=== PATIENT | female | born 1945 | race Caucasian/White ===

== ENCOUNTER → 2016-08-20 | Outpatient (CLI) | payer MEDICARE, OTHER ==
[~2016-08-20] MED LIST: ALDACTONE 100M100 MG PO; ALDACTONE50 MG PO; AMBIEN 10MG10 MG PO; AMBIEN 5MG TABLE5 MG PO; AMOXICILLIN 8751 TAB PO; ASPIRIN 32325 MG/TAB PO; ATIVAN 0.50.5 MG/TAB PO; ATIVAN 1MG T1 MG/TAB PO; BACTRIM DS 8001 TAB PO; CRESTOR 10MG10 MG PO; DOXYCYCLINE 10100 MG PO; EFFIENT10 MG PO; EXFORGE 10/320 PO; LASIX 20MG TABL20 MG PO; LORAZEPAM1 MG PO; PLAVIX 75MG TAB75 MG PO; PREMARIN0.3 MG PO; PRIL40 PO; PRINIVIL20 MG PO; REMERON30 MG PO; TOPROL XL 25MG25 MG PO; TOPROL XL 50MG50 MG PO; ULTRAM 50MG TAB50 MG PO; ZESTRIL 5MG5 MG PO; ZOLOFT 50MG50 MG PO; ZOLOFT50 MG PO; ZOLPIDEM10 MG PO
== END ==
LOC: MC.RAD 13:40
DX: Z12.31 Encounter for screening mammogram for malignant neoplasm of breast (principal)

== ENCOUNTER 2016-11-01 09:03 | Emergency (ER) | payer MEDICARE, OTHER ==
[~2016-11-01] VITALS: Ht 160 cm; Wt 72.7 kg
[~2016-11-01 09:03] MED LIST changes: -LASIX 20MG TABL20 MG PO; -PRINIVIL20 MG PO; -TOPROL XL 50MG50 MG PO
[2016-11-01 09:05] VITALS: TEMP 98.1
[2016-11-01 10:04] LABS: BASO # 0.1 (0.0-0.2); BASO % 0.9 % (0.0-2.0); EOS # 0.1 (0.0-0.7); EOS % 1.1 % (0-4.0); GRAN # 3.6 (1.4-6.5); GRAN % 63.1 % (42.2-75.2); LYMPH # 1.3 (1.2-3.4); LYMPH % 23.1 % (20.0-51.0); MEAN CELL VOLUME 85 fl (80.0-100.0); MEAN CORPUSCULAR HGB CONC 35 g/dl (33.0-37.0); MONO # 0.6 (0.1-0.6); MONO % 10.6 % (1.7-9.3); PLATELET COUNT 220 K/mm3 (130-400); REDCELL DISTRIBUTION WIDTH-CV 11.8 % (11.5-14.5); WHITE BLOOD COUNT 5.7 K/mm3 (4.8-10.8)
[2016-11-01 10:06] LABS: HEMATOCRIT 34.1 % (37.0-47.0); HEMOGLOBIN 11.9 g/dl (12.5-16.0); MEAN CORPUSCULAR HEMOGLOBIN 30 pg (27.0-31.0)
[2016-11-01 10:18] LABS: ADJUSTED CALCIUM 9.2 mg/dL (8.4-10.2); ALBUMIN 4.1 gm/dL (3.5-5.0); BILIRUBIN,TOTAL 0.8 mg/dL (0.0-1.0); CALCIUM 9.3 mg/dL (8.4-10.2); CREATININE, serum 0.96 mg/dL (0.52-1.25); POTASSIUM 4.9 mmol/L (3.4-5.0); TOTAL PROTEIN 7.2 gm/dL (6.4-8.2)
[2016-11-01 10:20] LABS: PH 6 (5-8); SQUAMOUS EPITHELIAL 0-2 /hpf; URINE APPEARANCE Clear; URINE BACTERIA None Seen /hpf; URINE BILIRUBIN Negative (NEGATIVE); URINE BLOOD 1+ (NEGATIVE); URINE COLOR Straw; URINE GLUCOSE Negative (NEGATIVE); URINE KETONE Negative (NEGATIVE); URINE RBC 0-2 /hpf; URINE UROBILINOGEN Negative (NEGATIVE); URINE WBC 0-2 /hpf
[2016-11-01] MEDS ORDERED: AMBIEN 5MG TABLE5 MG PO (10:25)
[2016-11-01] MEDS ORDERED: TOPROL XL 50MG50 MG PO (10:27)
[2016-11-01] MEDS ORDERED: LASIX 20MG TABL20 MG PO (10:29)
[2016-11-01] MEDS ORDERED: PRINIVIL20 MG PO (10:31)
[2016-11-01] MEDS ORDERED: ALDACTONE50 MG PO (10:35)
[2016-11-01 11:45] VITALS: BP 165/91; PULSE 57
== END 2016-11-01 11:45 | disposition home or self-care (01) ==
LOC: COL.ER 09:03
PROVIDERS: Family Medicine
DX: E87.1 Hypo-osmolality and hyponatremia (principal); I25.10 Atherosclerotic heart disease of native coronary artery without angina pectoris; I10 Essential (primary) hypertension
CPT/HCPCS: J7030

== ENCOUNTER → 2018-10-07 | Outpatient (CLI) | payer MEDICARE, OTHER ==
[~2018-10-07] MED LIST changes: +LASIX 20MG TABL20 MG PO; +PRINIVIL20 MG PO; +TOPROL XL 50MG50 MG PO
== END ==
LOC: MC.RAD 13:45
DX: Z12.31 Encounter for screening mammogram for malignant neoplasm of breast (principal); N64.89 Other specified disorders of breast

== ENCOUNTER → 2019-10-17 | Outpatient (CLI) | payer MEDICARE, OTHER | LOC: MC.RAD 10:42 | DX: Z12.31 Encounter for screening mammogram for malignant neoplasm of breast (principal) ==

== ENCOUNTER 2020-08-22 10:47 | Emergency (ER) | payer MEDICARE, OTHER ==
[~2020-08-22] VITALS: Ht 160 cm; Wt 62.7 kg
[2020-08-22 10:55] VITALS: TEMP 96.9
[2020-08-22 11:36] LABS: BASO % 0.4 % (0.0-2.0); EOS % 0.3 % (0-4.0); GRAN # 6.6 (1.4-6.5); GRAN % 73.6 % (42.2-75.2); LYMPH # 1.5 (1.2-3.4); LYMPH % 16.1 % (20.0-51.0); MEAN CELL VOLUME 86 fl (80.0-100.0); MEAN CORPUSCULAR HEMOGLOBIN 30 pg (27.0-31.0); MEAN CORPUSCULAR HGB CONC 35 g/dl (33.0-37.0); MEAN PLATELET VOLUME 10.4 fl (7.4-10.4); MONO # 0.8 (0.1-0.6); MONO % 8.8 % (1.7-9.3); PLATELET COUNT 155 K/mm3 (130-400); RED BLOOD COUNT 4.07 M/mm3 (4.10-5.30); REDCELL DISTRIBUTION WIDTH-CV 12.3 % (11.5-14.5)
[2020-08-22 11:38] LABS: COLLECTION METHOD CLEAN CATCH
[2020-08-22 11:41] LABS: HEMATOCRIT 34.8 % (37.0-47.0)
[2020-08-22 11:43] LABS: PH 6 (5-8); SQUAMOUS EPITHELIAL 0-2 /hpf; URINE APPEARANCE Clear; URINE BACTERIA None Seen /hpf; URINE BILIRUBIN Negative (NEGATIVE); URINE BLOOD Negative (NEGATIVE); URINE COLOR Straw; URINE GLUCOSE Negative (NEGATIVE); URINE KETONE Negative (NEGATIVE); URINE LEUKOCYTE ESTERASE Negative (NEGATIVE); URINE NITRATE Negative (NEGATIVE); URINE PROTEIN(semi-quant) Negative (NEGATIVE); URINE RBC None Seen /hpf; URINE UROBILINOGEN Negative (NEGATIVE)
[2020-08-22 12:05] LABS: ALANINE AMINOTRANSFERASE 22 U/L (4-34); ALBUMIN 4.3 gm/dL (3.5-5.0); ALKALINE PHOSPHATASE 65 U/L (50-136); ANION GAP 10 mmol/L (7-16); AST,SGOT 28 U/L (15-37); BILIRUBIN,TOTAL 0.3 mg/dL (0.0-1.0); BLOOD UREA NITROGEN 20 mg/dL (7-17); CALCIUM 9.2 mg/dL (8.4-10.2); CARBON DIOXIDE 25 mmol/L (22-30); CHLORIDE 90 mmol/L (98-107); GLUCOSE 99 mg/dL (74-106); MAGNESIUM 1.5 mg/dL (1.6-2.3); POTASSIUM 4.3 mmol/L (3.4-5.0); SODIUM 125 mmol/L (137-145); TOTAL PROTEIN 7.7 gm/dL (6.4-8.2)
[2020-08-22 12:18] LABS: TROPONIN-I < 0.012 ng/mL (0.000-0.035)
[2020-08-22 17:27] VITALS: BP 125/75; PULSE 61
== END 2020-08-22 17:29 | disposition home or self-care (01) ==
LOC: COL.ER 10:47
PROVIDERS: Nurse Practitioner
DX: E87.1 Hypo-osmolality and hyponatremia (principal); Z88.8 Allergy status to other drugs, medicaments and biological substances; Z79.02 Long term (current) use of antithrombotics/antiplatelets; Z86.73 Personal history of transient ischemic attack (TIA), and cerebral infarction without residual deficits
CPT/HCPCS: J7030

== ENCOUNTER 2020-09-03 09:05 | Inpatient (IN) | payer MEDICARE ==
[~2020-09-03] VITALS: Ht 160 cm; Wt 62.7 kg
[2020-09-03 10:45] LABS: COLLECTION METHOD CLEAN CATCH
[2020-09-03 10:52] LABS: PH 6 (5-8); SQUAMOUS EPITHELIAL 0-2 /hpf; URINE APPEARANCE Clear; URINE BACTERIA Rare /hpf; URINE BILIRUBIN Negative (NEGATIVE); URINE BLOOD Negative (NEGATIVE); URINE COLOR Straw; URINE GLUCOSE Negative (NEGATIVE); URINE KETONE Negative (NEGATIVE); URINE LEUKOCYTE ESTERASE Negative (NEGATIVE); URINE NITRATE Negative (NEGATIVE); URINE PROTEIN(semi-quant) Negative (NEGATIVE); URINE RBC 0-2 /hpf; URINE UROBILINOGEN Negative (NEGATIVE)
[2020-09-03 11:06] LABS: ALBUMIN 4.4 gm/dL (3.5-5.0); BASO # 0.1 (0.0-0.2); BASO % 0.6 % (0.0-2.0); BILIRUBIN,TOTAL 0.4 mg/dL (0.0-1.0); CALCIUM 9.3 mg/dL (8.4-10.2); CREATININE, serum 0.83 (0.52-1.25); EOS % 0.1 % (0-4.0); GRAN # 7.6 (1.4-6.5); GRAN % 75.9 % (42.2-75.2); HEMOGLOBIN 12.2 g/dl (12.5-16.0); LYMPH # 1.3 (1.2-3.4); LYMPH % 12.6 % (20.0-51.0); MEAN CELL VOLUME 87 fl (80.0-100.0); MEAN CORPUSCULAR HEMOGLOBIN 29 pg (27.0-31.0); MEAN CORPUSCULAR HGB CONC 33 g/dl (33.0-37.0); MEAN PLATELET VOLUME 10.6 fl (7.4-10.4); MONO % 9.8 % (1.7-9.3); PLATELET COUNT 198 K/mm3 (130-400); POTASSIUM 4.7 mmol/L (3.4-5.0); REDCELL DISTRIBUTION WIDTH-CV 12.4 % (11.5-14.5); TOTAL PROTEIN 7.8 gm/dL (6.4-8.2)
[2020-09-03 11:14] LABS: HEMATOCRIT 36.7 % (37.0-47.0)
[2020-09-03] MEDS ORDERED: ASPIRIN 81M81 MG/TA2 PO (12:41)
[2020-09-03 13:08] LABS: TSH w REFLEX 0.872 uIU/mL (0.465-4.680)
--- NOTE | 2020-09-03 14:15 | NUR ---
PT PLEASANT, AOX4, INDEPENDENT IN ROOM, NO SKIN ISSUES, ASSESSMENT PERFORMED, REVIEWED ALLERGIES AND HOME MEDS WITH PT, PT DENIES ANY PAIN AT THIS TIME, NO OTHER NEEDS.
--- NOTE | 2020-09-03 16:04 | NUR ---
PT C/O IV DISCOMFORT. IV FLUSHED W/O PAIN, NO HARDNESS PALPATED, NO SIGNS OF ERYTHEMA. PT REPORTING THIGH CRAMPING/MUSCLE SPASM AND REPORTS THIS HAPPENS WITH HER HYPONATREMIA. ATTEMPTED TO NOTIFY PROVIDER FOR ORDERS BUT NO ANSWER AT THIS TIME.
[2020-09-03 16:21] LABS: CALCIUM 9.6 mg/dL (8.4-10.2); CREATININE, serum 1.11 (0.52-1.25); POTASSIUM 4.3 mmol/L (3.4-5.0)
--- NOTE | 2020-09-03 16:34 | NUR ---
PT VERY CONCERNED ABOUT LOW SODIUM. SHE DOES NOT THINK HER SODIUM WILL COME UP WITH JUST GATORADE, SHE WANTS IV SODIUM AND THAT HAS WORKED IN THE PAST FOR HER. WILL RELAY TO PHYSICIAN
[2020-09-03 17:14] VITALS: BP 121/66; PULSE 64; TEMP 98.3
--- NOTE | 2020-09-03 17:24 | NUR ---
PT REPORTS MUSCLE SPASMS EARLIER THAT HAVE SINCE RESOLVED, NEEDING TO OBTAIN ECHO FROM [facility] TOMORROW. PT PLEASANT, WEARS HEARING AIDS AND GLASSES. INDEPENDENT IN THE ROOM, NO OTHER NEEDS AT THIS TIME.
[2020-09-03 20:29] VITALS: BP 135/74; PULSE 63; TEMP 98.2
--- NOTE | 2020-09-03 23:45 | NUR ---
Shift assessment completed. Patient alert and oriented. Patient denies any pain or discomfort. Denies SOB, N/V, headache, or dizziness. Denies leg cramping or numbness. Patient reports right AC IV site hurts and it was infiltrated. FARHAD Sharp started removed right AC IV and started new IV on left forearm. All scheduled meds given per JUN. Urea-Na 15gm PO started tonight per order. PRN Ambien and Ativan given per patient request for insomnia and anxiety. VS stable. Call light within reach. Will continue to monitor.
[2020-09-04] VITALS (7 sets, daily range): BP systolic 92–134; BP diastolic 52–92; PULSE 58–66; TEMP 97.7–98.5
--- NOTE | 2020-09-04 06:10 | NUR ---
Patient rested well throughout the night. VS remains stable. No c/o pain or discomfort. No acute distress noted. Call light within reach.
[2020-09-04 06:44] LABS: BASO # 0.1 (0.0-0.2); BASO % 0.8 % (0.0-2.0); EOS % 0.6 % (0-4.0); GRAN # 3.7 (1.4-6.5); GRAN % 56.7 % (42.2-75.2); HEMOGLOBIN 11.1 g/dl (12.5-16.0); LYMPH # 1.9 (1.2-3.4); LYMPH % 29.4 % (20.0-51.0); MEAN CELL VOLUME 86 fl (80.0-100.0); MEAN CORPUSCULAR HEMOGLOBIN 30 pg (27.0-31.0); MEAN CORPUSCULAR HGB CONC 34 g/dl (33.0-37.0); MEAN PLATELET VOLUME 10.7 fl (7.4-10.4); MONO # 0.7 (0.1-0.6); MONO % 11.3 % (1.7-9.3); PLATELET COUNT 165 K/mm3 (130-400); RED BLOOD COUNT 3.74 M/mm3 (4.10-5.30); REDCELL DISTRIBUTION WIDTH-CV 12.6 % (11.5-14.5)
[2020-09-04 06:47] LABS: HEMATOCRIT 32.3 % (37.0-47.0)
[2020-09-04 06:52] LABS: CALCIUM 9.1 mg/dL (8.4-10.2); CREATININE, serum 0.89 (0.52-1.25); POTASSIUM 4.3 mmol/L (3.4-5.0)
--- NOTE | 2020-09-04 08:07 | NUR ---
SODIUM MIXED IN GATORADE, REST OF GATORADE BROUGHT IN FOR PT. ALL MEDICATIONS GIVEN, PT WANTS TO GO HOME, EDUCATED ON NOT BEING ABLE TO RAISE SODIUM TOO MUCH IN A DAY FOR RISK OF ADVERSE EFFECTS. ASSESSMENT PERFORMED, CALL LIGHT WITHIN REACH, PT STEADY ON HER FEET INDEPENDENT IN THE ROOM, NO OTHER NEEDS.
--- NOTE | 2020-09-04 10:19 | NUR ---
GARY met with the patient to discuss discharge plan. [place], outside of [place]. She states that her son, Robert, and his family lives nearby. She reports independence with ADLs and does not have any DME. She states that she is still pretty active and mowes her own lawn. The patient's PCP is Dr. Amelia Grider and she receives her medications from [facility]. She reports no difficulties obtaining her meds. The patient does not have a DPOA-HC in EMR, but she states that she believes she has one completed and that she designated all four of her children: Luzma ([place], ph#[phone]), Robert, Alva ([place]), and Jacklyn ([place]). The patient plans to return home upon discharge. GARY discussed home health services. The patient reports that she is not interested in any home health at this time. GARY contacted the patient's daughter, Luzma, to review the above. Luzma confirms that the patient is very active and independent and does not have any concerns about the patient returning home upon discharge. Luzma states that she has a copy of the patient's DPOA-HC and can email a copy to GARY. Luzma reports that the patient's DPOA-HC was her , who is now . Luzma reports that she is the alternate. Luzma had no other questions for GARY at this time. *Discharge plan: home*
--- NOTE | 2020-09-04 17:12 | NUR ---
UNEVENTFUL SHIFT, PT WANTS TO DISCHARGE, EDUCATED ON LOW SODIUM AND EFFECTS, INDEPENDENT IN ROOM, C/O INTERMITTANT LEG CRAMPING, NO OTHER NEEDS.
--- NOTE | 2020-09-04 19:26 | NUR ---
Bedside shift report received from Josselin. Patient is currently laying in bed, awake. She has no complaints of pain at this time. Ure-Na pill has just been administered by Josselin. Will continue to monitor.
--- NOTE | 2020-09-04 20:00 | NUR ---
Assessment complete. Patient is alert and oriented with no complaints of pain. HR normal/regular and lungs clear. Patient is independent in the room. No edema or SOA is present. Patient requests to have sarai and cleveland for sleep tonight, which she takes at home. Call light in reach and comfort measures met.
[2020-09-05 04:26] VITALS: BP 97/59; PULSE 62; TEMP 98.2
[2020-09-05 06:33] LABS: HEMOGLOBIN 11.1 g/dl (12.5-16.0); MEAN CELL VOLUME 86 fl (80.0-100.0); MEAN CORPUSCULAR HEMOGLOBIN 29 pg (27.0-31.0); MEAN CORPUSCULAR HGB CONC 33 g/dl (33.0-37.0); MEAN PLATELET VOLUME 10.6 fl (7.4-10.4); PLATELET COUNT 160 K/mm3 (130-400); RED BLOOD COUNT 3.86 M/mm3 (4.10-5.30); REDCELL DISTRIBUTION WIDTH-CV 12.4 % (11.5-14.5)
[2020-09-05 06:39] LABS: HEMATOCRIT 33.3 % (37.0-47.0)
[2020-09-05 06:47] LABS: CALCIUM 9.1 mg/dL (8.4-10.2); CREATININE, serum 0.88 (0.52-1.25); POTASSIUM 4.3 mmol/L (3.4-5.0)
--- NOTE | 2020-09-05 07:15 | NUR ---
PT IS SITTING IN RECLINER AT THIS TIME. DOES NOT HAVE ANY COMPLAINTS AT THIS TIME. SHE IS INDEPENDENT. NO CONCERNS FROM NURSING STAFF, JUST TRENDING NA+. NO FURTHER CONCERNS AT THIS TIME. CALL LIGHT WITHIN REACH.
[2020-09-05 07:36] LABS: BASOPHIL 2 % (0-2); LYMPHOCYTE 30 % (20.0-51.0); METAMYELOCYTE 1 % (0-0); NEUTROPHILS 57 % (42.0-75.2); PLATELET ESTIMATE NORMAL (NORMAL)
[2020-09-05 07:50] VITALS: BP 109/75; PULSE 66; TEMP 98.3
--- NOTE | 2020-09-05 10:44 | NUR ---
Initial visit; Patient thanked Kettle Chipper for looking in on her and offering God's blessings. Kettle Chipper will keep Elizabet in her prayers for good health and healing as she grieves the loss of her .
[2020-09-05 11:32] VITALS: BP 122/63; PULSE 63; TEMP 97.8
[2020-09-05 17:03] VITALS: BP 147/77; PULSE 61; TEMP 97.6
--- NOTE | 2020-09-05 19:18 | NUR ---
REPORT GIVEN TO MAGGI LLAMAS. PT HAS HAD INCREDIBLY UNEVENTFUL DAY. SODIUM IMPROVED TO 128 TODAY.
--- NOTE | 2020-09-05 20:00 | NUR ---
Assessment complete. Patient is alert and oriented with no complaints of pain. She requests ambien and ativan PRN to be taken prior to sleep. No edema is noted and patient shows no signs of increased work of breathing. PO meds adminsitered with Gatorade. Patient ambulates independently and steadily in room. No new concerns, call light in reach.
[2020-09-05 20:08] VITALS: BP 133/73; PULSE 60; TEMP 98.6
[2020-09-06 00:30] VITALS: BP 125/68; PULSE 59; TEMP 97.6
[2020-09-06 04:03] VITALS: BP 119/68; PULSE 66; TEMP 98.8
[2020-09-06 06:58] LABS: BASO % 0.7 % (0.0-2.0); EOS # 0.1 (0.0-0.7); GRAN # 3.5 (1.4-6.5); GRAN % 59.2 % (42.2-75.2); HEMOGLOBIN 11.3 g/dl (12.5-16.0); LYMPH # 1.5 (1.2-3.4); LYMPH % 25.4 % (20.0-51.0); MEAN CELL VOLUME 87 fl (80.0-100.0); MEAN CORPUSCULAR HEMOGLOBIN 29 pg (27.0-31.0); MEAN CORPUSCULAR HGB CONC 33 g/dl (33.0-37.0); MEAN PLATELET VOLUME 10.6 fl (7.4-10.4); MONO # 0.8 (0.1-0.6); MONO % 12.7 % (1.7-9.3); PLATELET COUNT 163 K/mm3 (130-400); RED BLOOD COUNT 3.93 M/mm3 (4.10-5.30); REDCELL DISTRIBUTION WIDTH-CV 12.6 % (11.5-14.5)
[2020-09-06 06:59] LABS: HEMATOCRIT 34.2 % (37.0-47.0)
[2020-09-06 07:10] LABS: CALCIUM 9.1 mg/dL (8.4-10.2); CREATININE, serum 0.85 (0.52-1.25); POTASSIUM 4.5 mmol/L (3.4-5.0)
[2020-09-06 07:51] VITALS: BP 118/63; PULSE 73; TEMP 98.5
--- NOTE | 2020-09-06 10:40 | NUR ---
GARY attended clinical rounds. The patient may be able to d/c today, pending on nephrology and their plans for a new medication, Talvoptan. The patient reports that she would be interested in some outpatient PT/OT at [facility] upon discharge. GARY then followed up with the patient to review d/c plan. The patient confirms that she would be interested in outpatient PT/OT at [facility]. She requests that GARY just send the outpatient PT/OT order to [place] and have [place] call her to schedule an appointment. GARY presented and read the IM form outloud to the patient. The patient verbalized understanding and signed the form. GARY provided her with a copy. The patient had no questions or concerns for GARY about returning home. *Discharge plan: home with outpatient PT/OT*
[2020-09-06 11:32] VITALS: BP 120/62; PULSE 68; TEMP 98.6
[2020-09-06 15:26] VITALS: BP 125/74; PULSE 62; TEMP 98.2
--- NOTE | 2020-09-06 15:56 | NUR ---
PT HAS HAD UNEVNENTFUL DAY. AWAITING INSURANCE INFORMATION FOR THE [facility]. NO OTHER CONCERNS. CALL LIGHT WITHIN REACH.
[2020-09-06 19:25] VITALS: BP 152/82; PULSE 62; TEMP 98.4
--- NOTE | 2020-09-06 20:00 | NUR ---
Assessment complete. Patient is alert and oriented with no complaints of pain or additional concerns. Lung sounds are clear and HR is normal/regular. No edema is present. Patient is able to walk safely and independently in room. Call light in reach, will continue to monitor.
[2020-09-07 05:11] VITALS: BP 146/84; PULSE 66; TEMP 98.5
[2020-09-07 06:47] LABS: BASO # 0.1 (0.0-0.2); BASO % 0.9 % (0.0-2.0); EOS % 0.2 % (0-4.0); GRAN # 3.4 (1.4-6.5); GRAN % 53.5 % (42.2-75.2); HEMOGLOBIN 11.1 g/dl (12.5-16.0); LYMPH # 2.1 (1.2-3.4); LYMPH % 32.5 % (20.0-51.0); MEAN CELL VOLUME 87 fl (80.0-100.0); MEAN CORPUSCULAR HEMOGLOBIN 29 pg (27.0-31.0); MEAN CORPUSCULAR HGB CONC 33 g/dl (33.0-37.0); MEAN PLATELET VOLUME 10.7 fl (7.4-10.4); MONO # 0.8 (0.1-0.6); MONO % 11.8 % (1.7-9.3); PLATELET COUNT 164 K/mm3 (130-400); REDCELL DISTRIBUTION WIDTH-CV 12.5 % (11.5-14.5)
[2020-09-07 06:50] LABS: HEMATOCRIT 33.2 % (37.0-47.0)
[2020-09-07 07:04] LABS: CALCIUM 9.2 mg/dL (8.4-10.2); CREATININE, serum 0.9 (0.52-1.25); POTASSIUM 4.6 mmol/L (3.4-5.0)
[2020-09-07 07:38] VITALS: BP 126/78; PULSE 65; TEMP 99.1
[2020-09-07 11:10] VITALS: BP 129/71; PULSE 66; TEMP 98.1
--- NOTE | 2020-09-07 15:06 | NUR ---
The patient to tentatively discharge home today, 09/07 with OP PT/OT at [facility]. GARY faxed discharge orders to [facility] at # [phone]. There are no additional needs at this time.
== END 2020-09-07 13:00 | disposition home or self-care (01) | DRG 641 ==
LOC: COL.ER 09:05 → MEDICAL 11:23
PROVIDERS: Family Medicine; Physician Assistant; ADMIT Student in an Organized Health Care Education/Training Program
DX: E87.1 Hypo-osmolality and hyponatremia (principal); G47.00 Insomnia, unspecified; K21.9 Gastro-esophageal reflux disease without esophagitis; E78.5 Hyperlipidemia, unspecified; F41.9 Anxiety disorder, unspecified; I10 Essential (primary) hypertension; E26.9 Hyperaldosteronism, unspecified; I25.10 Atherosclerotic heart disease of native coronary artery without angina pectoris; Z90.710 Acquired absence of both cervix and uterus; Z90.49 Acquired absence of other specified parts of digestive tract; Z98.51 Tubal ligation status; Z79.82 Long term (current) use of aspirin; Z95.818 Presence of other cardiac implants and grafts
CPT/HCPCS: 99222-AI; 99231-AI; 99232-AI; 99239; J1940

== ENCOUNTER → 2020-09-10 | Outpatient (CLI) | payer MEDICARE ==
[~2020-09-10] MED LIST changes: +ASPIRIN 81M81 MG/TA2 PO; +MELATIN 3 MG-11 TAB PO; +PRINIVIL5 MG PO; +SAMSCA PO; +ZOFRAN ODT4 MG PO
[2020-09-10 10:46] LABS: CALCIUM 9.2 mg/dL (8.4-10.2); CREATININE, serum 0.98 (0.52-1.25); POTASSIUM 4.4 mmol/L (3.4-5.0)
== END ==
LOC: COL.LAB 10:13
DX: E87.1 Hypo-osmolality and hyponatremia (principal)

== ENCOUNTER 2020-09-15 08:06 | Emergency (ER) | payer MEDICARE ==
[~2020-09-15] VITALS: Ht 160 cm; Wt 62.7 kg
[~2020-09-15 08:06] MED LIST changes: -MELATIN 3 MG-11 TAB PO; -PRINIVIL5 MG PO; -SAMSCA PO; -ZOFRAN ODT4 MG PO
[2020-09-15 08:11] VITALS: TEMP 97.9
[2020-09-15 08:58] LABS: BASO # 0.1 (0.0-0.2); BASO % 0.7 % (0.0-2.0); EOS % 0.4 % (0-4.0); GRAN # 6.1 (1.4-6.5); GRAN % 72.5 % (42.2-75.2); HEMATOCRIT 37.2 % (37.0-47.0); HEMOGLOBIN 12.3 g/dl (12.5-16.0); LYMPH # 1.5 (1.2-3.4); LYMPH % 17.5 % (20.0-51.0); MEAN CELL VOLUME 88 fl (80.0-100.0); MEAN CORPUSCULAR HEMOGLOBIN 29 pg (27.0-31.0); MEAN CORPUSCULAR HGB CONC 33 g/dl (33.0-37.0); MEAN PLATELET VOLUME 11.3 fl (7.4-10.4); MONO # 0.7 (0.1-0.6); MONO % 7.7 % (1.7-9.3); PLATELET COUNT 174 K/mm3 (130-400); RED BLOOD COUNT 4.25 M/mm3 (4.10-5.30); REDCELL DISTRIBUTION WIDTH-CV 12.2 % (11.5-14.5)
[2020-09-15 09:08] LABS: ALBUMIN 4.3 gm/dL (3.5-5.0); BILIRUBIN,TOTAL 0.4 mg/dL (0.0-1.0); CALCIUM 10.1 mg/dL (8.4-10.2); CREATININE, serum 0.97 (0.52-1.25); POTASSIUM 4.4 mmol/L (3.4-5.0); TOTAL PROTEIN 7.9 gm/dL (6.4-8.2)
[2020-09-15 11:00] VITALS: BP 144/80; PULSE 60
== END 2020-09-15 11:00 | disposition home or self-care (01) ==
LOC: COL.ER 08:06
PROVIDERS: Personal Emergency Response Attendant
DX: E87.1 Hypo-osmolality and hyponatremia (principal); I10 Essential (primary) hypertension; K21.9 Gastro-esophageal reflux disease without esophagitis; I25.10 Atherosclerotic heart disease of native coronary artery without angina pectoris; Z88.8 Allergy status to other drugs, medicaments and biological substances; Z79.899 Other long term (current) drug therapy; Z79.82 Long term (current) use of aspirin
CPT/HCPCS: J7030

== ENCOUNTER 2020-09-30 13:17 | Emergency (ER) | payer MEDICARE ==
[~2020-09-30] VITALS: Ht 160 cm; Wt 62.7 kg
[2020-09-30 13:44] VITALS: TEMP 98.3
[2020-09-30 14:32] LABS: BASO % 0.5 % (0.0-2.0); EOS % 0.1 % (0-4.0); GRAN # 5.8 (1.4-6.5); GRAN % 69.6 % (42.2-75.2); HEMOGLOBIN 11.7 g/dl (12.5-16.0); LYMPH # 1.6 (1.2-3.4); LYMPH % 19.3 % (20.0-51.0); MEAN CELL VOLUME 91 fl (80.0-100.0); MEAN CORPUSCULAR HEMOGLOBIN 30 pg (27.0-31.0); MEAN CORPUSCULAR HGB CONC 33 g/dl (33.0-37.0); MEAN PLATELET VOLUME 11.4 fl (7.4-10.4); MONO # 0.8 (0.1-0.6); MONO % 9.7 % (1.7-9.3); PLATELET COUNT 111 K/mm3 (130-400); RED BLOOD COUNT 3.96 M/mm3 (4.10-5.30); REDCELL DISTRIBUTION WIDTH-CV 12.5 % (11.5-14.5)
[2020-09-30 14:39] LABS: ALANINE AMINOTRANSFERASE 14 U/L (4-34); ALBUMIN 3.9 gm/dL (3.5-5.0); ALKALINE PHOSPHATASE 63 U/L (50-136); ANION GAP 7 mmol/L (7-16); AST,SGOT 21 U/L (15-37); BILIRUBIN,TOTAL 0.2 mg/dL (0.0-1.0); BLOOD UREA NITROGEN 25 mg/dL (7-17); CALCIUM 9.3 mg/dL (8.4-10.2); CARBON DIOXIDE 27 mmol/L (22-30); CHLORIDE 103 mmol/L (98-107); CREATININE, serum 0.88 (0.52-1.25); GLUCOSE 93 mg/dL (74-106); LIPASE 86 U/L (23-300); POTASSIUM 4.5 mmol/L (3.4-5.0); SODIUM 136 mmol/L (137-145); TOTAL PROTEIN 7.3 gm/dL (6.4-8.2)
[2020-09-30 14:43] LABS: C-REACTIVE PROTEIN < 0.5 mg/dL (0.0-0.9)
[2020-09-30 14:56] LABS: COLLECTION METHOD CLEAN CATCH
[2020-09-30 14:57] LABS: PROTHROMBIN TIME 10.7 SECONDS (9.7-12.8)
[2020-09-30 15:34] LABS: PH 6 (5-8); URINE APPEARANCE Clear; URINE BACTERIA Rare /hpf; URINE BILIRUBIN Negative (NEGATIVE); URINE BLOOD Negative (NEGATIVE); URINE COLOR Straw; URINE GLUCOSE Negative (NEGATIVE); URINE KETONE Negative (NEGATIVE); URINE LEUKOCYTE ESTERASE 1+ (NEGATIVE); URINE NITRATE Negative (NEGATIVE); URINE PROTEIN(semi-quant) Negative (NEGATIVE); URINE RBC 0-2 /hpf; URINE UROBILINOGEN Negative (NEGATIVE)
[2020-09-30] MEDS ORDERED: ZOFRAN ODT4 MG PO (15:45)
[2020-09-30 16:00] VITALS: BP 133/84; PULSE 62
== END 2020-09-30 16:00 | disposition home or self-care (01) ==
LOC: COL.ER 13:17
PROVIDERS: Emergency Medicine
DX: R53.1 Weakness (principal); T50.995A Adverse effect of other drugs, medicaments and biological substances, initial encounter; I10 Essential (primary) hypertension; I25.10 Atherosclerotic heart disease of native coronary artery without angina pectoris; Z79.899 Other long term (current) drug therapy; Z79.82 Long term (current) use of aspirin
CPT/HCPCS: J2405

== ENCOUNTER 2020-11-12 16:18 | Inpatient (IN) | payer MEDICARE ==
[~2020-11-12] VITALS: Ht 154.9 cm; Wt 62.5 kg
[~2020-11-12 16:18] MED LIST changes: +ZOFRAN ODT4 MG PO
[2020-11-12 16:59] LABS: ALBUMIN 4.4 gm/dL (3.5-5.0); BILIRUBIN,TOTAL 0.3 mg/dL (0.0-1.0); CALCIUM 9.4 mg/dL (8.4-10.2); CREATININE, serum 0.79 (0.52-1.25); POTASSIUM 4.7 mmol/L (3.4-5.0); TOTAL PROTEIN 7.6 gm/dL (6.4-8.2)
[2020-11-12 17:07] LABS: MEAN CELL VOLUME 86 fl (80.0-100.0); MEAN CORPUSCULAR HEMOGLOBIN 29 pg (27.0-31.0); MEAN CORPUSCULAR HGB CONC 34 g/dl (33.0-37.0); MEAN PLATELET VOLUME 10.8 fl (7.4-10.4); PLATELET COUNT 201 K/mm3 (130-400); RED BLOOD COUNT 4.12 M/mm3 (4.10-5.30); REDCELL DISTRIBUTION WIDTH-CV 11.8 % (11.5-14.5)
[2020-11-12 17:37] LABS: HEMATOCRIT 35.4 % (37.0-47.0)
[2020-11-12 18:37] LABS: LYMPHOCYTE 12 % (20.0-51.0); MYELOCYTE 1 % (0-0); NEUTROPHILS 85 % (42.0-75.2)
[2020-11-12 18:38] LABS: PLATELET ESTIMATE NORMAL (NORMAL)
[2020-11-12 18:50] LABS: COLLECTION METHOD CLEAN CATCH
[2020-11-12 19:12] LABS: PH 7 (5-8); SQUAMOUS EPITHELIAL 0-2 /hpf; URINE APPEARANCE Clear; URINE BACTERIA None Seen /hpf; URINE BILIRUBIN Negative (NEGATIVE); URINE BLOOD Negative (NEGATIVE); URINE COLOR Straw; URINE GLUCOSE Negative (NEGATIVE); URINE KETONE Negative (NEGATIVE); URINE LEUKOCYTE ESTERASE Trace (NEGATIVE); URINE NITRATE Negative (NEGATIVE); URINE PROTEIN(semi-quant) Negative (NEGATIVE); URINE RBC 0-2 /hpf; URINE UROBILINOGEN Negative (NEGATIVE)
--- NOTE | 2020-11-12 19:48 | NUR ---
Pt. arrived to the floor via stretcher. Pt. able to independently transfer to the bed. Pt. is A&OX3, assessment complete. IV to rt. forearm patent, IV fluids infusing per orders. Pt. denies pain or other needs.
--- NOTE | 2020-11-12 19:50 | NUR ---
Pt. to the floor. Pt. is A&OX3, assessment complete. INT to rt. forearm patent, IV fluids infusing per orders. Pt. denies pain or other needs, call light within reach.
[2020-11-12 20:41] VITALS: BP 153/93; PULSE 66; TEMP 98.2
[2020-11-13] VITALS (8 sets, daily range): BP systolic 117–145; BP diastolic 48–88; PULSE 54–65; TEMP 97.6–98.7
[2020-11-13 06:46] LABS: HEMOGLOBIN 10.4 g/dl (12.5-16.0); MEAN CELL VOLUME 86 fl (80.0-100.0); MEAN CORPUSCULAR HEMOGLOBIN 29 pg (27.0-31.0); MEAN CORPUSCULAR HGB CONC 34 g/dl (33.0-37.0); MEAN PLATELET VOLUME 11.2 fl (7.4-10.4); PLATELET COUNT 147 K/mm3 (130-400); RED BLOOD COUNT 3.58 M/mm3 (4.10-5.30); REDCELL DISTRIBUTION WIDTH-CV 11.9 % (11.5-14.5)
[2020-11-13 06:50] LABS: ALBUMIN 3.3 gm/dL (3.5-5.0); BILIRUBIN,TOTAL 0.3 mg/dL (0.0-1.0); CALCIUM 8.8 mg/dL (8.4-10.2); CREATININE, serum 0.75 (0.52-1.25); HEMATOCRIT 30.8 % (37.0-47.0); POTASSIUM 4.3 mmol/L (3.4-5.0); TOTAL PROTEIN 6.1 gm/dL (6.4-8.2)
--- NOTE | 2020-11-13 07:21 | NUR ---
Report received from Emile. Pt. resting in bed at this time, this RN introduced self to Pt. Pt. reports she is hard of hearing and will put in hearing aids later this AM, but she is aware of plan of care. Call light in reach.
[2020-11-13 07:46] LABS: BAND 1 % (0-10); LYMPHOCYTE 33 % (20.0-51.0); METAMYELOCYTE 1 % (0-0); NEUTROPHILS 59 % (42.0-75.2); PLATELET ESTIMATE NORMAL (NORMAL)
--- NOTE | 2020-11-13 10:53 | NUR ---
Initial visit attempt; Patient using telephone, Area Plant Manager said "Good morning" and will look in on Elizabet another day.
--- NOTE | 2020-11-13 12:31 | NUR ---
Pt. progressing with plan of care. Pt. reports Dr. Esposito was in to see her. IVF decreased per order. Pt. OOB sitting in seat eating lunch. Pt. reports feeling tired possibly related to low sodium levels. Needs addressed. Call light in reach, safety maintained. Pt. calling appropriately for assistance.
--- NOTE | 2020-11-13 17:02 | NUR ---
composite layup worker met with patient to discuss discharge planning. Patient stated she lives alone on [place] farm near [facility] and plans to return home upon discharge. Patient states she is and her daughter (Mae) is supportive as well as her son, that lives close by. Patient's primary care provider is Dr Grider and patient was receiving outpatient physical therapy at the [facility]. Patient plans to return home upon discharge and resume outpatient physical therapy at [facility].
[2020-11-13 18:36] LABS: ALBUMIN 4.2 gm/dL (3.5-5.0); BILIRUBIN,TOTAL 0.2 mg/dL (0.0-1.0); CALCIUM 9.3 mg/dL (8.4-10.2); CREATININE, serum 0.98 (0.52-1.25); POTASSIUM 4.1 mmol/L (3.4-5.0); TOTAL PROTEIN 7.3 gm/dL (6.4-8.2)
--- NOTE | 2020-11-13 19:29 | NUR ---
Orders for Samsa and IVF changed per Dr. Esposito. IV now saline locked. Pt. told sodium level was 127 and she appears to be in good spirits. Pt. introduced to night shift manager FARHAD Brito.
--- NOTE | 2020-11-13 19:40 | NUR ---
PATIENT SITTING IN RECLINER ALERT AND ORIENTEDX4. DENIES ANY PAIN, STILL C/O SLIGHT WEAKNESS. VSS. IVF DISCONTINUED. PATIENT TOLERATED PO WELL. CALL LIGHT IN REACH. NO NEED AT THIS TIME. WILL CONTINUE TO [place].
[2020-11-14 03:54] VITALS: BP 124/67; PULSE 66; TEMP 98.5
[2020-11-14 08:37] VITALS: BP 137/64; PULSE 69; TEMP 98
[2020-11-14 08:43] LABS: HEMOGLOBIN 12.2 g/dl (12.5-16.0); MEAN CELL VOLUME 88 fl (80.0-100.0); MEAN CORPUSCULAR HEMOGLOBIN 29 pg (27.0-31.0); MEAN CORPUSCULAR HGB CONC 33 g/dl (33.0-37.0); MEAN PLATELET VOLUME 10.5 fl (7.4-10.4); PLATELET COUNT 198 K/mm3 (130-400); RED BLOOD COUNT 4.17 M/mm3 (4.10-5.30); REDCELL DISTRIBUTION WIDTH-CV 12.3 % (11.5-14.5)
[2020-11-14 08:49] LABS: HEMATOCRIT 36.7 % (37.0-47.0)
[2020-11-14 08:53] LABS: ALBUMIN 3.9 gm/dL (3.5-5.0); BILIRUBIN,TOTAL 0.3 mg/dL (0.0-1.0); CALCIUM 9.5 mg/dL (8.4-10.2); CREATININE, serum 0.87 (0.52-1.25); POTASSIUM 3.9 mmol/L (3.4-5.0); TOTAL PROTEIN 7.1 gm/dL (6.4-8.2)
[2020-11-14 09:48] LABS: BAND 1 % (0-10); LYMPHOCYTE 22 % (20.0-51.0); METAMYELOCYTE 1 % (0-0); NEUTROPHILS 71 % (42.0-75.2); PLATELET ESTIMATE NORMAL (NORMAL)
--- NOTE | 2020-11-14 11:30 | NUR ---
PATIENT SHOWERED INDEPENDENTLY AND STATES SHE IS FEELING MUCH BETTER TODAY. PATIENT STATES NO OTHER NEEDS AT THIS TIME.
[2020-11-14 13:00] VITALS: BP 121/70; PULSE 68; TEMP 97.6
[2020-11-14 15:55] VITALS: BP 152/78; PULSE 62; TEMP 99
--- NOTE | 2020-11-14 18:44 | NUR ---
PATIENT HAS BEEN SITTING ON COUCH MOST OF THE DAY. PATIENT CONSTIPATED THROUGHOUT DAY GIVEN SUPPOSITORY PER ORDERS AND GIVEN PRUNE JUICE. STATES SHE IS FEELING BETTER THROUGHOUT THE DAY AFTER BM. PATIENT STATES NO OTHER NEEDS AT THIS TIME. CALL LIGHT WITHIN REACH.
[2020-11-14 20:20] VITALS: BP 133/82; PULSE 59; TEMP 98
[2020-11-14 23:45] VITALS: BP 97/58; PULSE 58; TEMP 97.3
[2020-11-15 03:52] VITALS: BP 109/63; PULSE 70; TEMP 98.2
--- NOTE | 2020-11-15 07:09 | NUR ---
Pt resting with eyes closed, even non labored breathing
[2020-11-15 07:24] LABS: BASO # 0.1 (0.0-0.2); BASO % 0.6 % (0.0-2.0); GRAN # 7.4 (1.4-6.5); GRAN % 75.3 % (42.2-75.2); HEMATOCRIT 32.6 % (37.0-47.0); HEMOGLOBIN 10.9 g/dl (12.5-16.0); LYMPH # 1.4 (1.2-3.4); LYMPH % 14.2 % (20.0-51.0); MEAN CELL VOLUME 88 fl (80.0-100.0); MEAN CORPUSCULAR HEMOGLOBIN 29 pg (27.0-31.0); MEAN CORPUSCULAR HGB CONC 33 g/dl (33.0-37.0); MEAN PLATELET VOLUME 10.7 fl (7.4-10.4); MONO # 0.9 (0.1-0.6); MONO % 8.9 % (1.7-9.3); PLATELET COUNT 148 K/mm3 (130-400); RED BLOOD COUNT 3.72 M/mm3 (4.10-5.30); REDCELL DISTRIBUTION WIDTH-CV 12.1 % (11.5-14.5)
[2020-11-15 07:32] LABS: ALBUMIN 3.2 gm/dL (3.5-5.0); BILIRUBIN,TOTAL 0.3 mg/dL (0.0-1.0); CALCIUM 8.6 mg/dL (8.4-10.2); CREATININE, serum 0.81 (0.52-1.25); POTASSIUM 3.7 mmol/L (3.4-5.0); TOTAL PROTEIN 6.3 gm/dL (6.4-8.2)
[2020-11-15 08:20] VITALS: BP 129/68; PULSE 62; TEMP 98.6
[2020-11-15] MEDS ORDERED: PRINIVIL5 MG PO (11:17)
[2020-11-15] MEDS ORDERED: SAMSCA PO (11:19)
[2020-11-15] MEDS ORDERED: MELATIN 3 MG-11 TAB PO (11:19)
[2020-11-15 12:00] VITALS: BP 126/71; PULSE 60; TEMP 98.1
--- NOTE | 2020-11-15 14:07 | NUR ---
PATIENT GIVEN DISCHARGE INSTRUCTIONS OVER NEW MEDS AND FOLLOW UP APPOINTMENTS. PATIENT HAD NO FURTHER QUESTIONS TODAY AND WAS READY TO GO HOME. PATIENT TAKEN DOWN IN WHEELCHAIR TO GO HOME WITH GRANDDAUGHTER.
== END 2020-11-15 14:00 | disposition home or self-care (01) | DRG 645 ==
LOC: COL.ER 16:18 → SURG 17:16
PROVIDERS: Family Medicine; ADMIT Internal Medicine Nephrology
DX: E22.2 Syndrome of inappropriate secretion of antidiuretic hormone (principal); F41.9 Anxiety disorder, unspecified; I10 Essential (primary) hypertension; K21.9 Gastro-esophageal reflux disease without esophagitis; E78.2 Mixed hyperlipidemia; K59.00 Constipation, unspecified; G47.00 Insomnia, unspecified; I25.10 Atherosclerotic heart disease of native coronary artery without angina pectoris; Z86.73 Personal history of transient ischemic attack (TIA), and cerebral infarction without residual deficits; Z90.49 Acquired absence of other specified parts of digestive tract; Z90.710 Acquired absence of both cervix and uterus; Z95.5 Presence of coronary angioplasty implant and graft; Z88.8 Allergy status to other drugs, medicaments and biological substances
CPT/HCPCS: J7030

== ENCOUNTER → 2021-04-10 | Outpatient (CLI) | payer MEDICARE ==
[~2021-04-10] MED LIST changes: +MELATIN 3 MG-11 TAB PO; +PRINIVIL5 MG PO; +SAMSCA PO
== END ==
LOC: COL.RAD 13:41
DX: M25.552 Pain in left hip (principal)
CPT/HCPCS: J3301; Q9967

== ENCOUNTER → 2021-08-09 | Outpatient (CLI) | payer MEDICARE | LOC: COL.RAD 09:01 | DX: M19.011 Primary osteoarthritis, right shoulder (principal); M75.121 Complete rotator cuff tear or rupture of right shoulder, not specified as traumatic; M67.813 Other specified disorders of tendon, right shoulder; M75.01 Adhesive capsulitis of right shoulder ==

== ENCOUNTER 2021-12-12 10:06 | Inpatient (IN) | payer MEDICARE ==
[~2021-12-12] VITALS: Ht 154.9 cm; Wt 60.4 kg
[2021-12-12 10:39] LABS: BASO % 0.3 % (0.0-2.0); GRAN # 7.5 K/mm3 (1.4-6.5); GRAN % 69.6 % (42.2-75.2); HEMATOCRIT 37.5 % (37.0-47.0); LYMPH # 2.1 K/mm3 (1.2-3.4); LYMPH % 19.5 % (20.0-51.0); MEAN CELL VOLUME 84 fl (80.0-100.0); MEAN CORPUSCULAR HEMOGLOBIN 27 pg (27-31); MEAN CORPUSCULAR HGB CONC 32 g/dl (33.0-37.0); MONO # 1.1 K/mm3 (0.1-0.6); MONO % 10.1 % (1.7-9.3); PLATELET COUNT 158 K/mm3 (130-400); RED BLOOD COUNT 4.47 M/mm3 (4.10-5.30); REDCELL DISTRIBUTION WIDTH-CV 16.2 % (11.5-14.5)
[2021-12-12 10:59] LABS: BILIRUBIN,TOTAL 0.4 mg/dL (0.2-1.2); CALCIUM 9.7 mg/dL (8.4-10.2); CREATININE, serum 0.98 mg/dL (0.57-1.11); TOTAL PROTEIN 7.5 gm/dL (6.2-8.1)
[2021-12-12 11:04] LABS: TROPONIN-I 0.014 ng/mL (0.00-0.033)
--- NOTE | 2021-12-12 16:45 | NUR ---
PT ADMITTED TO ROOM 319, PT HYPERTENSIVE, TEENA WITH NEPHROLOGY NOTIFIED AND PLACED NEW ORDERS, PRN HYDRALAZINE GIVEN, PT HAD ECHO IN ROOM, NOW DOWN TO CT, OTHER VSS, PT A&O X4, RA, PT ORIENTED TO ROOM/FLOOR ROUTINES, FALL PRECAUTIONS IN PLACE, CALL LIGHT IN REACH, CONSENT FOR HEART CATH OBTAINED
[2021-12-12 18:01] VITALS: BP 171/79; PULSE 57; TEMP 98.1
[2021-12-12 20:00] VITALS: BP 157/81; PULSE 59; TEMP 98.3
[2021-12-12 20:50] VITALS: BP 153/83; PULSE 54; TEMP 98.2
--- NOTE | 2021-12-12 21:36 | NUR ---
BEDSIDE SHIFT REPORT RECEIVED FROM RN. PT CURRENTLY RESTING IN BED. NO C/O PAIN OR DISCOMFORT. SALINE LOCKED. VSS.
[2021-12-12 23:57] VITALS: BP 103/58; PULSE 57; TEMP 97.4
[2021-12-13 03:27] VITALS: BP 133/74; PULSE 58; TEMP 98.1
[2021-12-13 07:14] LABS: HEMOGLOBIN 10.6 g/dl (12.5-16.0); MEAN CELL VOLUME 84 fl (80.0-100.0); MEAN CORPUSCULAR HEMOGLOBIN 27 pg (27-31); MEAN CORPUSCULAR HGB CONC 32 g/dl (33.0-37.0); PLATELET COUNT 125 K/mm3 (130-400); RED BLOOD COUNT 3.94 M/mm3 (4.10-5.30); REDCELL DISTRIBUTION WIDTH-CV 16.5 % (11.5-14.5)
[2021-12-13 07:23] LABS: PROTHROMBIN TIME 11.1 SECONDS (9.7-12.8)
[2021-12-13 07:26] LABS: PARTIAL THROMBOPLASTIN TIME 26.4 SECONDS (26.0-37.0)
[2021-12-13 07:46] LABS: CALCIUM 8.9 mg/dL (8.4-10.2); CREATININE, serum 0.81 mg/dL (0.57-1.11)
[2021-12-13 07:51] VITALS: BP 154/65; PULSE 60; TEMP 98.6
[2021-12-13 07:56] LABS: BASO % 0.6 % (0.0-2.0); EOS % 0.2 % (0.0-4.0); GRAN # 2.7 K/mm3 (1.4-6.5); GRAN % 51.1 % (42.2-75.2); LYMPH # 1.9 K/mm3 (1.2-3.4); LYMPH % 35.7 % (20.0-51.0); MONO # 0.6 K/mm3 (0.1-0.6)
[2021-12-13 07:58] LABS: ALBUMIN 2.9 gm/dL (3.4-4.8); CALCIUM 8.9 mg/dL (8.4-10.2); CREATININE, serum 0.82 mg/dL (0.57-1.11); PHOSPHOROUS 3.9 mg/dL (2.3-4.7)
--- NOTE | 2021-12-13 09:00 | NUR ---
PT ALERT AND ORIENT X4, VSS, DENIES COMPLAINTS,PT NPO SINCE MID NIGHT. DUE MEDS GIVEN WITH LITLE WATER. PT STATES SHE HAS TAKEN SOME HOME MEDICATION IN THE MORNING,SAYS SHE WAS TOLD ITS OKAY TO TAKE HOME MEDICATION PT UNABLE TO TELL THE SPECIFIC PERSON WHO TOLD HER THAT.PT THEREFORE ADVISED NOT TO TAKE HOME MEDS WHILE IN HOSPITAL, MED RECONCILATION BE DONE ONCE AGAIN.
--- NOTE | 2021-12-13 12:00 | NUR ---
PT WHEELED TO HEALTH AND SAFETY TECH FOR HEARTH CATH AND LOOP RECORDER PLACEMENT.
[2021-12-13 12:17] VITALS: BP 169/73; PULSE 58; TEMP 98.9
--- NOTE | 2021-12-13 13:05 | NUR ---
Mill Operator Helper met with patient to discuss discharge planning. [place]. Patient's daughter, July (ph#[phone]) is at bedside. Patient advised she had her knee replaced a few weeks ago and she stayed with Luzma for a short time after her surgery. Patient normally does not use DME but advised she was set up with a front wheeled walker, shower chair, and stool riser after her surgery. Patient also occasionally will use a cane when walking outside. Patient reports she is normally independent with ADLS and goes to outpatient PT at the [facility]. Patient drives herself to appointments but advised she will probably hold off on driving for a few days. Patient plans to return home at time of discharge. Discharge Plan: Home
[2021-12-13 15:35] VITALS: BP 115/77; PULSE 42; TEMP 93.8; TEMP 96.5
--- NOTE | 2021-12-13 15:35 | NUR ---
This RN verified first unit PRBC's ([id number]) with Alexandr LLAMAS in labeling strategist. PRBC started in left forearm. 24ml of blood infused, IV infiltrated in left forearm.
== END 2021-12-13 14:00 | DRG 251 ==
LOC: COL.ER 10:06 → MEDICAL 13:04
PROVIDERS: Emergency Medicine; Registered Nurse; ADMIT Internal Medicine Nephrology
PROC: 02713ZZ Dilation of Coronary Artery, Two Arteries, Percutaneous Approach (ICD-10-PCS; principal; 2021-12-13)
PROC: 0JH632Z Insertion of Monitoring Device into Chest Subcutaneous Tissue and Fascia, Percutaneous Approach (ICD-10-PCS; 2021-12-13)
PROC: 4A023N7 Measurement of Cardiac Sampling and Pressure, Left Heart, Percutaneous Approach (ICD-10-PCS; 2021-12-13)
PROC: B2111ZZ Fluoroscopy of Multiple Coronary Arteries using Low Osmolar Contrast (ICD-10-PCS; 2021-12-13)
PROC: 0W9D3ZZ Drainage of Pericardial Cavity, Percutaneous Approach (ICD-10-PCS; 2021-12-13)
DX: I25.10 Atherosclerotic heart disease of native coronary artery without angina pectoris (principal); I31.3 Pericardial effusion (noninflammatory); E22.2 Syndrome of inappropriate secretion of antidiuretic hormone; I31.4 Cardiac tamponade; R55 Syncope and collapse; F41.9 Anxiety disorder, unspecified; I16.0 Hypertensive urgency; S01.81XA Laceration without foreign body of other part of head, initial encounter; W18.39XA Other fall on same level, initial encounter; K21.9 Gastro-esophageal reflux disease without esophagitis; E78.5 Hyperlipidemia, unspecified; G47.00 Insomnia, unspecified; I95.9 Hypotension, unspecified; M19.90 Unspecified osteoarthritis, unspecified site; F32.A Depression, unspecified; I12.9 Hypertensive chronic kidney disease with stage 1 through stage 4 chronic kidney disease, or unspecified chronic kidney disease; N18.9 Chronic kidney disease, unspecified; I05.9 Rheumatic mitral valve disease, unspecified; Z86.73 Personal history of transient ischemic attack (TIA), and cerebral infarction without residual deficits; Z90.49 Acquired absence of other specified parts of digestive tract; Z95.5 Presence of coronary angioplasty implant and graft; Z88.8 Allergy status to other drugs, medicaments and biological substances; Z90.710 Acquired absence of both cervix and uterus; Z98.51 Tubal ligation status; Z86.718 Personal history of other venous thrombosis and embolism; Z79.82 Long term (current) use of aspirin; Y93.89 Activity, other specified; Y92.89 Other specified places as the place of occurrence of the external cause; Z23 Encounter for immunization; I25.2 Old myocardial infarction
CPT/HCPCS: C1725; C1769; C1876; C1887; J0583; J2250; J3010; P9016; Q9967

== ENCOUNTER 2021-12-24 14:03 | Inpatient (IN) | payer MEDICARE ==
[~2021-12-24] VITALS: Ht 154.9 cm; Wt 55.3 kg
[2021-12-24] MEDS ORDERED: CORDARONE200 MG/TAB PO (16:02)
[2021-12-24] MEDS ORDERED: PLAVIX 75MG TAB75 MG PO (16:03)
[2021-12-24] MEDS ORDERED: K-DUR 10 MEQ T10 MEQ PO (16:03)
[2021-12-24] MEDS ORDERED: LASIX 40MG TABL40 MG PO (16:03)
[2021-12-24] MEDS ORDERED: CYMBALTA 60MG60 MG PO (16:05)
[2021-12-24] MEDS ORDERED: CELEBREX 200MG200 MG PO (16:06)
[2021-12-24] MEDS ORDERED: LAMICTAL 25MG T25 MG PO (16:07)
[2021-12-24] MEDS ORDERED: CRESTOR 10MG10 MG PO (16:09)
[2021-12-24] MEDS ORDERED: RESTORIL30 MG PO (16:10)
[2021-12-24] MEDS ORDERED: SAMSCA15 MG PO (16:35)
[2021-12-24 17:13] VITALS: BP 115/62; PULSE 67; TEMP 98.1
--- NOTE | 2021-12-24 17:40 | NUR ---
PATIENT ARRIVED AT 1525PM TODAY FROM [facility]. PATIENT HAD CABG DONE OVER THERE. PATIENT SITE IS CLEAR AND OPEN TO AIR. PATIENT LUNG HAVE SOME SLIGHT RALES NOTED. DR GEORGE IS AWARE. DR GEORGE VERIFIED ALL MEDICATION. BOWEL SOUND ACTIVE IN ALL 4 QUADS WITH A BOWEL MOVEMENT YESTERDAY. PATIENT ABLE TO WALK WITH WALKER 200-250 FT. PATIENT HAS DISCOMFORT ON CHEST AREA WHICH THE NURSE AT [facility] SAID THEY HAVE BEEN GIVEN HER TYLENOL Q6 HOURS. PATIENT ALERT X 4 WTIH NO MEMORY ISSUE. REGULAR DIET BUT PATIENT REQUEST AN ENSURE/ NOTICES THERE WAS A BLISTER ON INNER COCCXY AREA (WHICH DR GEORGE LOOK AT IT) AND WE BOTH VERIFIED IT WAS A BLISTER BUT THE FLUID OR DRAINAGE IS GOINE. MONITOR AND APPLY CREAM IF NEEDED.
--- NOTE | 2021-12-24 19:32 | NUR ---
PT IN CHAIR UPON ASSESSMENT. ABLE TO STAND WITH WALKER FOR SKIN ASSESSMENT AT THIS TIME. PT DENIES PAIN OR CONCERNS AT THIS TIME. INCISION ON CHEST DRY WITH NO SIGNS OF INFECTION ALONG WITH INCISION ON ABD ALSO CLEAN AND DRY. LUNG SOUNDS CLEAR, SLIGHTLY DIMINISHED BILATERALLY. HEARING AIDS APPLIED BILATERALLY AND GLASSES ON. CALL LIGHT WITHIN REACH.
[2021-12-25 05:05] VITALS: BP 111/58; PULSE 76; TEMP 98.9
--- NOTE | 2021-12-25 07:05 | NUR ---
Shift report received from shift superintendent caustic cresylate RN
[2021-12-25] MEDS ORDERED: PRIL40 PO (11:48)
--- NOTE | 2021-12-25 11:51 | NUR ---
Pt reporting heartburn. Dr. Mcarthur notified - this med was stopped when she was dc'd from [facility]. Will place order to restart
--- NOTE | 2021-12-25 15:55 | NUR ---
Welcomed pt to the Rehab unit. Explained the rehab process & goals. Provided pt w/ Welcome packet. Completed SW assessment w/ pt. She is alert & oriented & able to communicate her needs & wants to others. She has her own teeth but also has partial upper which are at home & wears glasses. She does wear bilateral hearing aides. She lives alone. She lives in a 2 story home w/ basement & has 3 steps & ramp to get to her home. She does not use the 2nd level or basement. There are 2 steps from the kitchen into rest of the home. The bathroom has a walk-in shower but no grab bars. The toilet is standard height. Pt reports walking w/out a device & was independent w/ her self care. She also reports doing the cooking, housekeeping, laundry, shopping, driving, medication management, & finance management. She has a r/walker, cane, & toilet seat riser. Pharmacy: [facility] & reports no issues w/ affording her medications. PCP: Dr. Grider Reviewed team conference notes & told her the team would re-evaluate next 01/01/22. Pt had no questions/concerns at this time about her rehab stay. SW will continue to follow to provide support & assist w/ d/c planning.
[2021-12-25 17:16] VITALS: BP 111/59; PULSE 69; TEMP 97.7
--- NOTE | 2021-12-25 19:00 | NUR ---
RECEIVED CHANGE OF SHIFT REPORT FROM DAY SHIFT RN.
[2021-12-26 05:40] VITALS: BP 108/61; PULSE 71; TEMP 97.5
--- NOTE | 2021-12-26 06:35 | NUR ---
BEDREPORT DONE. PATIENT RESTING IN BED . CALL LIGHT IN REACH.
[2021-12-26 06:37] LABS: MEAN CELL VOLUME 86 fl (80.0-100.0); MEAN CORPUSCULAR HGB CONC 33 g/dl (33.0-37.0); MEAN PLATELET VOLUME 11.1 fl (7.4-10.4); PLATELET COUNT 147 K/mm3 (130-400); RED BLOOD COUNT 3.17 M/mm3 (4.10-5.30); REDCELL DISTRIBUTION WIDTH-CV 15.9 % (11.5-14.5)
[2021-12-26 06:40] LABS: HEMATOCRIT 27.4 % (37.0-47.0); HEMOGLOBIN 8.9 g/dl (12.5-16.0); MEAN CORPUSCULAR HEMOGLOBIN 28 pg (27-31)
[2021-12-26 06:55] LABS: CALCIUM 8.2 mg/dL (8.4-10.2); CREATININE, serum 0.94 mg/dL (0.57-1.11); POTASSIUM 4.2 mmol/L (3.5-4.5)
--- NOTE | 2021-12-26 07:19 | NUR ---
CHANGE OF SHIFT REPORT GIVEN TO DAY SHIFT RNEVELYN.
[2021-12-26 07:23] LABS: EOSINOPHIL 3 % (0-4); LYMPHOCYTE 11 % (20.0-51.0); METAMYELOCYTE 2 % (0-0); NEUTROPHILS 77 % (42.0-75.2); PLATELET ESTIMATE NORMAL (NORMAL)
--- NOTE | 2021-12-26 08:58 | NUR ---
Initial visit; Patient thanked Living Coach for looking in on her and offering God's blessings for a good day and good health. Patient pleased to meet Living Coach and asked that Living Coach visit often.
--- NOTE | 2021-12-26 14:07 | NUR ---
ASSESSMENT DONE. PATIENT ALERT X 3 WITH NO MEMORY ISSUE. PATIENT EATING ABOUT 60-90% OF HER MEAL BUT HAVING VERY SMALL PORTIONS. BOWEL SOUND ACTIVE IN ALL 4 QUADS. PATIENT MOSTLY INDEPENDENT BUT WITH GAIT BELT.
--- NOTE | 2021-12-26 16:02 | NUR ---
construction ironworker met with patient to check in and arranged a family meeting. Patient is agreeable to Thursday at 1000, but wishes to contact her children to notify. Patient reports that she has other family memebers who live in [place] that may want to join as well. She states they linux network engineer and have offered to travel up and stay with the patient while working from her home but she doesn't know if that will be needed or not.
[2021-12-26 16:53] VITALS: BP 103/60; PULSE 61; TEMP 98
--- NOTE | 2021-12-26 21:26 | NUR ---
PT SITTING IN RECLINER. MOD ASSIST TO STAND. AMB MIN 1 WITH WALKER. ENC TO SLOW DOWN FOR SAFETY. PT VOIDS W/O DIFFICULTY. REPORTS NO BM TO DAY. STERNAL INCISION HEALING WELL. PT DENIES NEED FOR PAIN MED. PT AMB BACK TO RECLINER. CALL LIGHT IN REACH. CHAIR ALARM SET.
[2021-12-27 05:15] VITALS: BP 135/69; PULSE 71; TEMP 99.1
[2021-12-27 06:25] LABS: MEAN CELL VOLUME 87 fl (80.0-100.0); MEAN CORPUSCULAR HGB CONC 33 g/dl (33.0-37.0); MEAN PLATELET VOLUME 11.3 fl (7.4-10.4); PLATELET COUNT 142 K/mm3 (130-400); RED BLOOD COUNT 3.27 M/mm3 (4.10-5.30); REDCELL DISTRIBUTION WIDTH-CV 15.7 % (11.5-14.5)
[2021-12-27 06:29] LABS: HEMATOCRIT 28.4 % (37.0-47.0); HEMOGLOBIN 9.3 g/dl (12.5-16.0); MEAN CORPUSCULAR HEMOGLOBIN 28 pg (27-31)
--- NOTE | 2021-12-27 06:45 | NUR ---
Shift report received from assistant shift supervisor RN
--- NOTE | 2021-12-27 11:07 | NUR ---
Follow-up; Concierge spoke briefly with Elizabet and offered encouragement and God's blessings. Concierge will continue to look in on Elizabet.
[2021-12-27 18:00] VITALS: BP 103/54; PULSE 65; TEMP 98.4
--- NOTE | 2021-12-27 21:00 | NUR ---
PT PLEASANT AND COOPERATIVE. A&O X4. DENIES PAIN AT THIS TIME. AMB IN ROOM W/ SBA AND WALKER. STEADY GAIT. PT REPORTS BM TODAY. SHIFT ASSESSMENT COMPLETE. CALL LIGHT IN REACH. CHAIR ALARM SET- RETURN TO RECLINER.
[2021-12-28 05:01] VITALS: BP 131/76; PULSE 63; TEMP 98.1
--- NOTE | 2021-12-28 07:14 | NUR ---
BEDSIDE REPORT DONE. PATIENT UP AND WENT TO THE BATHROOM. URINATED AND HAD SMALL BOWEL MOVEMENT. LUNG UPPER SLIGHTLY WHEEZING BUT AFTER COUGHING IT WENT AWAY. LOWER LUNG CLEAR. EDUCATED TO USE I.S. THROUGH OUT THE DAY. PATIENT UNDERSTOOD. EDEMA ON LOWER EXTREMITIES.
--- NOTE | 2021-12-28 07:51 | NUR ---
(LATE ENTRY) GARY spoke with the patient's daughter July via phone. July states that she will be attending the family meeting on Thursday via phone. She also provides me with the idea of the patient coming to stay at her home post discharge. July states that when the patient had her knee surgery, she stayed with her daughter during recovery in [place]. Luzma would like to see the same thing happen this time.
--- NOTE | 2021-12-28 08:33 | NUR ---
PATIENT ALERT X 4 WITH NO MEMORY ISSUE. PAIN IS A 3/10 ON CHEST AREA (ACHE) NOTICES SLIGHT WHEEZING EXHALING ON UPPER LOBE BUT NOT LOWER LOBES. EDUCATED TO USE I.S THROUGHOUT THE DAY. PATIENT DID 10 INCENTIVE SPRIMETOR DURING MY ASSESSMENT. EDEMA ON LOWER EXTREMITES WITH HUDSON HOSE ARE ON AT THIS TIME.
--- NOTE | 2021-12-28 13:04 | NUR ---
Rn Embedded rounds: Rn Embedded visit attempted. No Patient was in this room. Housekeeping was cleaning it.
--- NOTE | 2021-12-28 15:56 | NUR ---
PATIENT STATED SHE NEEDED TO USE THE RESTROOM, CHECK ON HER LEFT BLISTER THIS AM AND NOTICES MORE DOWN THAT SHE HAS TWO SMALL OPEN AREA. PATIENT STATED THEY ARE TENDER TO TOUCH.PLACE CREAM ON BOTH SIDE(LEFT AND RIGHT) EDUCATED TO REPOSITION EVERY 2-3 HOURS TO PREVENT THESORE TO INCREASE. PATIENIT UNDERSTOOD.
[2021-12-28 18:01] VITALS: BP 136/87; PULSE 63; TEMP 98.6
--- NOTE | 2021-12-28 18:25 | NUR ---
PATIENT HAS BEEN EATING AND RESTING THROUGHT OUT THE DYA WITH MILD PAIN. TYLENOL WAS GIVEN AROUND 8AM AND SINCE THEN , PATIENT HAD NO PAIN. WILL CONTINUE TO TO MONITOR
--- NOTE | 2021-12-28 20:00 | NUR ---
PT IN BR WITH WALKER. VOIDING W/O DIFFICULTY. REQUEST TYLENOL FOR ARTHRITIS DISCOMFORT. READY FOR BED. CALL LIGHT IN REACH. BED ALARM SET.
[2021-12-29 04:59] VITALS: BP 123/73; PULSE 66; TEMP 98.7
--- NOTE | 2021-12-29 06:59 | NUR ---
BEDSIDE REPORT DONE. PATIENT RESTING IN BED. CALL LIGHT IN REACH
--- NOTE | 2021-12-29 09:17 | NUR ---
ASSESSMENT DONE. PATIENT ALERT AND ORIENT X 4 WITH NO MEMEORY ISSUE. LUNG CLERA IN ALL LOBES. BOWEL SOUND ACTIVE IN ALL 4 QUADS. PATIENT THREAT MONITORING ANALYST EQUAL. ABLE TO MOVE LEGS WITH OUT ANY ISSUE. USE GAIT BET AND WALKER FOR STABLITY.
[2021-12-29 17:24] VITALS: BP 148/66; PULSE 69; TEMP 98.7
--- NOTE | 2021-12-29 18:24 | NUR ---
PATIENT HAD 2 MED BOWEL MOVEMENT TODAY. NO PAIN NOTED
--- NOTE | 2021-12-29 21:37 | NUR ---
PT SITTING UP IN RECLINER. AMB TO BR WITH WALKER. STEADY GAIT. VOIDING W/O DIFFICULTY. HAD BM TODAY. SEE MAR FOR BENADRYL AND TYLENOL GIVEN PER REQUEST. CALL LIGHT IN REACH. BED ALARM SET.
[2021-12-30 05:49] VITALS: BP 137/79; PULSE 74; TEMP 98
--- NOTE | 2021-12-30 06:19 | NUR ---
PT HAD A RESTFUL NIGHT. NO NEEDS AT THIS TIME.
--- NOTE | 2021-12-30 06:47 | NUR ---
Shift report received from charge account clerk RN
--- NOTE | 2021-12-30 11:32 | NUR ---
operations supervisor 2nd shift nurse reporting possible stage I to inner buttocks. Skin assessment completed by this copywriter and assessed by Tri Finney RN. Moisture-related skin breakdown noted between buttock where buttocks touch. Skin is blanchable, nontender and measured approx 1 cm circular. Skin barrier ointment provided to patient and patient education given. Pt. also reminded to shift positions frequently. Air mattress overlay placed on bed. Pt. voiced understanding. Pt is now Mod I in her room.
--- NOTE | 2021-12-30 14:26 | NUR ---
Follow-up visit; Patient had visitor, Title Investigator just mentioned she was thinking of her and wanted to wish her well. Patient thanked Title Investigator for stopping.
--- NOTE | 2021-12-30 16:41 | NUR ---
Family meeting held in the patient's room. Patient's 3 daughters present via phone along with PT/OT/ST/ IPR director and MD.Patient progress discussed and team set a discharge date of 01/02. Patient and family are in agreement to patient discharging to her daughter July's house in [place] and attending outpatient PT/OT there.
[2021-12-30 17:31] VITALS: BP 123/62; PULSE 69; TEMP 97.6
--- NOTE | 2021-12-30 17:46 | NUR ---
Pt. remains on Mod I status in room. She denies pain/discomfort. Reminded pt. to change position frequently and to apply skin barrier ointments prn toileting. Pt. verbalized understanding. Call light is in her reach
--- NOTE | 2021-12-30 19:06 | NUR ---
PT SITTING ON BENCH BY WINDOW WHEN ENTERING ROOM. PT DENIES ANY NEEDS. SHE IS IND. IN HER ROOM. WILL CONTINUE TO MONITOR.
[2021-12-31 05:55] VITALS: BP 119/57; PULSE 66; TEMP 98
--- NOTE | 2021-12-31 06:45 | NUR ---
Shift report received from refrigeration engineer RN
--- NOTE | 2021-12-31 10:43 | NUR ---
Pt remains on Mod I status. Pt. shaved her legs this morning and has a small lac to her RLE. Pt. currently in the Rehab gym for Group Therapy
--- NOTE | 2021-12-31 14:52 | NUR ---
Pt sitting up on bench seat in room. She denies pain/discomfort. She remains Mod I in room. Pt. denies additional needs. Call light is in her reach
[2021-12-31 17:50] VITALS: BP 140/87; PULSE 59; TEMP 97.9
--- NOTE | 2021-12-31 18:30 | NUR ---
RECEIVED CHANGE OF SHIFT REPORT FROM DAY SHIFT RN.
--- NOTE | 2021-12-31 18:35 | NUR ---
Pt sitting on bench seat in room. Denies pain/discomfort. RLE laceration from shaving is clean/dry. She remains on Mod I status in her room. Denies other needs. Call light is in her reach
[2022-01-01 05:29] VITALS: BP 139/67; PULSE 67; TEMP 98
--- NOTE | 2022-01-01 06:39 | NUR ---
BEDSIDE REPORT DONE. PATIENT CALL LIGHT IN REACH.
--- NOTE | 2022-01-01 07:25 | NUR ---
CHANGE OF SHIFT REPORT GIVEN TO DAY SHIFT RNEVELYN.
--- NOTE | 2022-01-01 10:25 | NUR ---
ASSESSMENT DONE ORDER. PATIENT MOD I IN ROOM. ABLE TO GET AROUND WITH WALKER. LUNG CLERA IN ALL LOBES. BOWEL SOUND ACTIVEN IN ALL 4 QUADS WITH A BOWEL MOVEMENT ALMOST DAILY.
--- NOTE | 2022-01-01 12:45 | NUR ---
Reviewed the team conference notes w/ pt. She stated that she understood & agreed w/ the current level of functioning. We discussed d/c plans for tomorrow, 01/02/22. She continues to plan on going home w/ her daughter, July, in [place]. Told her that GARY will call & set up her first outpatient appointment & that GARY is still waiting on the transportation list. Reviewed that she has her own r/walker. She also stated she has a toilet seat riser & shower chair. She did ask that SW contact her daughter July once the outpatient appointment is set up. She did not have any other questions/concerns at this time. GARY will continue to follow for d/c planning & support.
--- NOTE | 2022-01-01 13:55 | NUR ---
Contacted [facility] Outpatient Therapy department. Referral made for continued PT for strengthening & endurance. Scheduled first initial appointment for 01/08/22 at 12:30 pm. Faxed referral information for continued care.
[2022-01-01 18:00] VITALS: BP 144/74; PULSE 55; TEMP 97.9
--- NOTE | 2022-01-01 19:15 | NUR ---
RECEIVED CHANGE OF SHIFT REPORT FROM DAY SHIFT RN.
[2022-01-02 05:03] VITALS: BP 115/49; PULSE 62; TEMP 98.2
--- NOTE | 2022-01-02 05:36 | NUR ---
PATIENT WITH NO REPORTED COMPLAINTS OR NEEDS DURING NIGHT, UP AD MORGAN DURING WAKING HOURS, PATIENT REQUESTED SUPERVISION DURING NIGHT WHEN UP TO BATHROOM UPON WAKING FROM SLEEP FOR COMFORT "PEACE OF MIND".
--- NOTE | 2022-01-02 06:36 | NUR ---
BEDSIDE REPORT DONE. PATIENT RESTING IN BED
--- NOTE | 2022-01-02 08:29 | NUR ---
ASSESSMENT DONE ORDER. PATIENT ALERT X 4 WITH NO MEMORY ISSUE.. PATIENT MOD I IN ROOM. EATING ABOUT 100% OF HER FOOD. SLIGHT WHEEZING ON EXHALING BUT PATINET STATED THAT COMES AND GOES. NO COUGH NOTED. BOWEL SOUND ACTIVE WITH A BOWEL MOVEMENT TODAY
[2022-01-02] MEDS ORDERED: LAMICTAL 25MG T25 MG PO (09:22)
[2022-01-02] MEDS ORDERED: JARDIANCE10 PO (09:24)
[2022-01-02] MEDS ORDERED: CELEBREX 1100 MG/CAP PO (09:27)
[2022-01-02] MEDS ORDERED: RESTORIL30 MG PO (09:27)
--- NOTE | 2022-01-02 13:54 | NUR ---
PATIENT DISCHARGE HOME TODAY. SPOKE WITH BOTH OF SON AND PATIEN ABOUT DISCHARGE INSTRUCTION. BOTH OF THEM UNDERSTOOD ABOUT THE APPOINTMENT AND MEDICATION. NO CONCERN NOTED
== END 2022-01-02 13:24 | disposition home or self-care (01) | DRG 948 ==
PROVIDERS: ADMIT Physical Medicine & Rehabilitation Sports Medicine
DX: R53.81 Other malaise (principal); E22.2 Syndrome of inappropriate secretion of antidiuretic hormone; J91.8 Pleural effusion in other conditions classified elsewhere; D62 Acute posthemorrhagic anemia; I31.4 Cardiac tamponade; I25.10 Atherosclerotic heart disease of native coronary artery without angina pectoris; R26.89 Other abnormalities of gait and mobility; R55 Syncope and collapse; I48.91 Unspecified atrial fibrillation; I10 Essential (primary) hypertension; E78.5 Hyperlipidemia, unspecified; R41.89 Other symptoms and signs involving cognitive functions and awareness; G47.00 Insomnia, unspecified; M19.90 Unspecified osteoarthritis, unspecified site; F32.A Depression, unspecified; K59.00 Constipation, unspecified; R20.2 Paresthesia of skin; R06.02 Shortness of breath; W01.198D Fall on same level from slipping, tripping and stumbling with subsequent striking against other object, subsequent encounter; Z95.1 Presence of aortocoronary bypass graft; Z79.899 Other long term (current) drug therapy; Z95.5 Presence of coronary angioplasty implant and graft; Z96.651 Presence of right artificial knee joint; Z86.73 Personal history of transient ischemic attack (TIA), and cerebral infarction without residual deficits; Z79.02 Long term (current) use of antithrombotics/antiplatelets; Z73.6 Limitation of activities due to disability; Z79.82 Long term (current) use of aspirin; Z88.8 Allergy status to other drugs, medicaments and biological substances; Z86.14 Personal history of Methicillin resistant Staphylococcus aureus infection; Y92.009 Unspecified place in unspecified non-institutional (private) residence as the place of occurrence of the external cause
CPT/HCPCS: A9270

== ENCOUNTER → 2022-07-01 | Outpatient (CLI) | payer MEDICARE ==
[~2022-07-01] MED LIST changes: +CELEBREX 1100 MG/CAP PO; +CELEBREX 200MG200 MG PO; +CORDARONE200 MG/TAB PO; +CYMBALTA 60MG60 MG PO; +JARDIANCE10 PO; +K-DUR 10 MEQ T10 MEQ PO; +LAMICTAL 25MG T25 MG PO; +LASIX 40MG TABL40 MG PO; +RESTORIL30 MG PO; +SAMSCA15 MG PO; +VALU-DRYL ALLER25 MG PO
== END ==
LOC: MC.RAD 06-23 13:30
DX: Z12.31 Encounter for screening mammogram for malignant neoplasm of breast (principal); R92.1 Mammographic calcification found on diagnostic imaging of breast

== ENCOUNTER → 2022-07-03 | Outpatient (CLI) | payer MEDICARE | LOC: MC.RAD 13:30 | DX: R92.0 Mammographic microcalcification found on diagnostic imaging of breast (principal) ==

== ENCOUNTER 2023-01-17 19:42 | Inpatient (IN) | payer MEDICARE ==
[~2023-01-17] VITALS: Ht 149.9 cm; Wt 60.0 kg
[~2023-01-17 19:42] MED LIST changes: +ELIQUIS 5MG PO; +NORCO 325 MG-51 TAB PO; +PACERONE100 MG PO; +PEPCID 20MG TAB20 MG PO; +PROTONIX20 MG PO
[2023-01-17] MEDS ORDERED: CYMBALTA 60MG60 MG PO (20:26)
[2023-01-17] MEDS ORDERED: RESTORIL30 MG PO (20:27)
[2023-01-17] MEDS ORDERED: CELEBREX 1100 MG/CAP PO (20:27)
--- NOTE | 2023-01-17 21:50 | NUR ---
PT admitted to room 327 per EMS from [place]. pt alert and oriented x4, left leg in immobilizer, voss catheter present with yellow, cloudy urine in bag. IV in RAC patent and secure. pt oriented to room and plan of care, admission intake and assessment and med rec completed. pt's daughter July @ bedside. pt c/o pain in left upper leg 01/20, Alaina Langston APRN notified of pt's arrival and request for pain meds.
[2023-01-17 21:55] VITALS: BP 143/67; PULSE 79; TEMP 98.9
[2023-01-17] MEDS ORDERED: COLACE 100100 MG/CAP PO (23:32)
[2023-01-17] MEDS ORDERED: PRILOTC PO (23:37)
[2023-01-17] MEDS ORDERED: ULTRAM 50MG TAB50 MG PO (23:44)
[2023-01-17 23:56] VITALS: BP 136/66; PULSE 78; TEMP 98.6
[2023-01-18] VITALS (9 sets, daily range): BP systolic 98–124; BP diastolic 51–70; PULSE 70–78; TEMP 98–98.6
[2023-01-18 00:01] LABS: COLLECTION METHOD CLEAN CATCH
[2023-01-18] MEDS ORDERED: CELEBREX 1100 MG/CAP PO (00:04)
[2023-01-18] MEDS ORDERED: CORDARONE200 MG/TAB PO (00:05)
[2023-01-18] MEDS ORDERED: PRINIVIL20 MG PO (00:05)
[2023-01-18 00:15] LABS: PH 8.5 (5.0-8.5); URINE APPEARANCE Cloudy (CLEAR/HAZY); URINE BLOOD 1+ (NEGATIVE); URINE GLUCOSE Negative (NEGATIVE); URINE KETONE TRACE (NEGATIVE); URINE NITRATE Positive (NEGATIVE); URINE PROTEIN(semi-quant) 2+ (NEGATIVE)
[2023-01-18 00:16] LABS: SQUAMOUS EPITHELIAL 0-2 /hpf (0-10); URINE BACTERIA Occasional /hpf (NONE SEEN); URINE RBC 0-2 /hpf (0-2)
[2023-01-18 00:25] LABS: URINE COLOR Yellow (YELLOW)
[2023-01-18 05:55] LABS: CALCIUM 8.5 mg/dL (8.4-10.2); CREATININE, serum 0.94 mg/dL (0.57-1.11); POTASSIUM 4.5 mmol/L (3.5-4.5)
--- NOTE | 2023-01-18 06:07 | NUR ---
pt's pain controlled this am with increased morphine dose and added tramadol. bowel regime started, started on IV antibiotic for UTI, IVF infusing per PIV @ 75 cc/hr. on RA. ice pack in place.
[2023-01-18 07:03] LABS: BASO # 0.1 K/mm3 (0.0-0.2); BASO % 0.4 % (0.0-2.0); EOS % 0.1 % (0.0-4.0); GRAN # 11.1 K/mm3 (1.4-6.5); GRAN % 78.7 % (42.2-75.2); LYMPH # 1.9 K/mm3 (1.2-3.4); LYMPH % 13.1 % (20.0-51.0); MEAN CELL VOLUME 83 fl (80.0-100.0); MEAN CORPUSCULAR HGB CONC 31 g/dl (33.0-37.0); MEAN PLATELET VOLUME 11.1 fl (7.4-10.4); MONO # 0.9 K/mm3 (0.1-0.6); MONO % 6.6 % (1.7-9.3); PLATELET COUNT 84 K/mm3 (130-400); RED BLOOD COUNT 3.13 M/mm3 (4.10-5.30); REDCELL DISTRIBUTION WIDTH-CV 24.9 % (11.5-14.5)
[2023-01-18 07:04] LABS: HEMATOCRIT 25.9 % (37.0-47.0); HEMOGLOBIN 8.1 g/dl (12.5-16.0); MEAN CORPUSCULAR HEMOGLOBIN 26 pg (27-31)
--- NOTE | 2023-01-18 08:38 | NUR ---
PT RESTING IN BED. PO PAIN MEDS GIVEN FOR PAIN. AM MEDS GIVEN. PT ATE 100% OF BREAKFAST. PT ON BOWEL PROTOCOLS FOR CONSTIPATION. LLE IN BRACE PER ORTHO RECS, IV FLUIDS PER PUMP TO RAC. UPDATED DAUGHTER ON PT STATUS THIS AM. NO SURGERY PLANNED FOR TODAY.
--- NOTE | 2023-01-18 11:45 | NUR ---
Pheresis Specialist rounds: Patient was sleeping.
--- NOTE | 2023-01-18 12:01 | NUR ---
Health And Wellness Sales Consultant met with patient to discuss discharge planning. Patient lives alone on a farm outside of [place], [place]. Patient advised her son Robert lives nearby. Patient had knee surgery a couple weeks ago and has most recently been staying with her daughter, Luzma (ph#[phone]) in [place]. Patient reported she was receiving in home PT/OT through [facility] in [place]. Patient advised she was at Luzma's home when she went outside to sit in the sun, then heard a couple "pops". Patient was found to have a fractured leg and will require surgery, which patient stated should take place on Thursday. Patient has a walker available at home but normally walks without any assistive devices. Patient is also normally independent with ADLS and remarked she does all her own yard work. Patient has DPOA-HC in EMR that designates her late , Armando along with her children. SW advised patient that SW will assist with whatever is recommended for her discharge, including the possibility of post acute rehab. SW then contacted patient's daughter, Luzma who confirmed the above. SW also explained process for discharge planning and advised she would await recommendations following surgery. Discharge Plan: Pending surgery and therapy recommendations, may need post acute rehab
[2023-01-19] VITALS (11 sets, daily range): BP systolic 98–153; BP diastolic 48–72; PULSE 72–76; TEMP 98–99.1
--- NOTE | 2023-01-19 07:11 | NUR ---
Report received from the night nurse, FARHAD Villavicencio.
[2023-01-19 08:29] LABS: BASO # 0.1 K/mm3 (0.0-0.2); BASO % 0.3 % (0.0-2.0); EOS # 0.1 K/mm3 (0.0-0.7); EOS % 0.3 % (0.0-4.0); GRAN # 11.5 K/mm3 (1.4-6.5); GRAN % 77.6 % (42.2-75.2); LYMPH # 1.8 K/mm3 (1.2-3.4); LYMPH % 11.9 % (20.0-51.0); MEAN CELL VOLUME 84 fl (80.0-100.0); MEAN CORPUSCULAR HGB CONC 32 g/dl (33.0-37.0); MEAN PLATELET VOLUME 12.2 fl (7.4-10.4); MONO # 1.3 K/mm3 (0.1-0.6); MONO % 8.6 % (1.7-9.3); PLATELET COUNT 82 K/mm3 (130-400); RED BLOOD COUNT 3.05 M/mm3 (4.10-5.30); REDCELL DISTRIBUTION WIDTH-CV 23.9 % (11.5-14.5)
[2023-01-19 08:33] LABS: HEMATOCRIT 25.5 % (37.0-47.0); HEMOGLOBIN 8.1 g/dl (12.5-16.0); MEAN CORPUSCULAR HEMOGLOBIN 27 pg (27-31)
[2023-01-19 08:45] LABS: CALCIUM 8.6 mg/dL (8.4-10.2); CREATININE, serum 1.28 mg/dL (0.57-1.11); POTASSIUM 4.8 mmol/L (3.5-4.5)
--- NOTE | 2023-01-19 09:18 | NUR ---
Patient resting in bed alert and oriented. Patient reports of left leg pain and desribes it as throbbing Patient rated pain level 6/10 and declines pain medication at this time. Patient able to wiggle toes and does have sensation at left toes. Patient had projectile vomitting during assessment and zofran administered. Hygiene performed by tech and gown and linen changed. Call arrieta within reach.
--- NOTE | 2023-01-19 09:30 | NUR ---
Patient had episode of projectile vomiting , and hygiene performed by Tech.
[2023-01-19] MEDS ORDERED: TYLENOL 500MG500 MG PO (09:47)
--- NOTE | 2023-01-19 14:46 | NUR ---
Patient c/o fullness and constipation and needing medication to cleanse her bowels before upcoming surgery on 01/20/23. ENRIQUE Whittaker notified and will order medications for patient.
--- NOTE | 2023-01-19 17:54 | NUR ---
Patient declined the orders for suppository to be administered for constipation. Patient states she will takes her routine scheduled medication at 2100 for constipation.
--- NOTE | 2023-01-19 20:00 | NUR ---
PT A&O X4 LAYING IN BED. VSS. DENIES N/V & RATES PAIN 3/10 IN LEFT LEG - ICE PACK IN PLACE BUT DENYING ANY PAIN MEDS AT THIS TIME. LEFT LEG IMMOBILIZER IN PLACE. MALHOTRA TO DD WITH CLOUDY YELLOW OUTPUT. NS @ 75 INFUSING TO LEFT HAND. SCD & HUDSON TO RLE. FALL PRECAUTIONS IN PLACE & CALL LIGHT IN REACH. PT DENYING FURTHER NEEDS AT THIS TIME.
[2023-01-20] VITALS (24 sets, daily range): BP systolic 117–178; BP diastolic 62–89; PULSE 71–82; TEMP 97.7–98.8
[2023-01-20 05:54] LABS: CALCIUM 8.5 mg/dL (8.4-10.2); CREATININE, serum 0.96 mg/dL (0.57-1.11); MAGNESIUM 2.5 mg/dL (1.6-2.6); POTASSIUM 4.6 mmol/L (3.5-4.5)
[2023-01-20 05:56] LABS: MEAN CELL VOLUME 83 fl (80.0-100.0); MEAN CORPUSCULAR HGB CONC 32 g/dl (33.0-37.0); PLATELET COUNT 53 K/mm3 (130-400); RED BLOOD COUNT 2.71 M/mm3 (4.10-5.30); REDCELL DISTRIBUTION WIDTH-CV 23.7 % (11.5-14.5)
[2023-01-20 05:57] LABS: HEMATOCRIT 22.5 % (37.0-47.0); HEMOGLOBIN 7.1 g/dl (12.5-16.0); MEAN CORPUSCULAR HEMOGLOBIN 26 pg (27-31)
[2023-01-20 06:30] LABS: EOSINOPHIL 1 % (0-4); LYMPHOCYTE 15 % (20.0-51.0); METAMYELOCYTE 1 % (0-0); NEUTROPHILS 71 % (42.0-75.2)
[2023-01-20 06:31] LABS: ANISOCYTOSIS 2+; PLATELET ESTIMATE DECREASED (NORMAL)
--- NOTE | 2023-01-20 08:40 | NUR ---
pt resting in bed, a&ox4. pt rates pain a 5/10. vss and tele in place. pt to recieve 2 units of PRBC per recommendations. voss to dd w yellow urine output. scds to ble. teds to rle. fluids infusing in left hand. fall precautions in place. call light in reach. no needs at this time.
--- NOTE | 2023-01-20 09:18 | NUR ---
Initial visit; Elizabet said she remembers Shipping Services Sales Representative from a previous hospitalization. She is having surgery on her leg today which she says worries her this time. Shipping Services Sales Representative listened, offered prayer and God's blessings and will keep Elizabet in Shipping Services Sales Representative's prayers and will also follow up after her surgery.
--- NOTE | 2023-01-20 15:21 | NUR ---
PT OFF FLOOR FOR SURGERY
--- NOTE | 2023-01-20 15:23 | NUR ---
Rice Drier met with Patient and Son at [facility] to discuss discharge planning. Patient states to want to go to [facility] for rehab. Patient's son states that for other options, [facility] is also requested as a backup. Patient would like to potentially also be referred to a [facility] in [place]. Patient explains that she has the preference of [facility] and otherwise would like to recieve rehab in a location close to her children. Patient's son agrees to contact this SW with a third option for SNF. Rice Drier sent referrals to [facility] and [facility].
[2023-01-20 15:51] LABS: MEAN CELL VOLUME 84 fl (80.0-100.0); MEAN CORPUSCULAR HGB CONC 32 g/dl (33.0-37.0); PLATELET COUNT 53 K/mm3 (130-400); RED BLOOD COUNT 3.82 M/mm3 (4.10-5.30); REDCELL DISTRIBUTION WIDTH-CV 20.9 % (11.5-14.5)
[2023-01-20 15:53] LABS: HEMATOCRIT 31.9 % (37.0-47.0); MEAN CORPUSCULAR HEMOGLOBIN 27 pg (27-31)
[2023-01-20 15:55] LABS: HEMOGLOBIN 10.3 g/dl (12.5-16.0)
--- NOTE | 2023-01-20 20:57 | NUR ---
REPORT RECIEVED FROM SEBAS LLAMAS. PT STILL IN OR.
[2023-01-20 21:01] LABS: MEAN CELL VOLUME 83 fl (80.0-100.0); MEAN CORPUSCULAR HGB CONC 33 g/dl (33.0-37.0); MEAN PLATELET VOLUME 10.9 fl (7.4-10.4); PLATELET COUNT 113 K/mm3 (130-400); RED BLOOD COUNT 3.64 M/mm3 (4.10-5.30); REDCELL DISTRIBUTION WIDTH-CV 21.3 % (11.5-14.5)
[2023-01-20 21:04] LABS: HEMATOCRIT 30.1 % (37.0-47.0); HEMOGLOBIN 9.8 g/dl (12.5-16.0); MEAN CORPUSCULAR HEMOGLOBIN 27 pg (27-31)
[2023-01-20 21:23] LABS: BAND 4 % (0-10); LYMPHOCYTE 7 % (20.0-51.0); METAMYELOCYTE 2 % (0-0); NEUTROPHILS 85 % (42.0-75.2)
[2023-01-20 21:24] LABS: ANISOCYTOSIS 1+; PLATELET ESTIMATE NORMAL (NORMAL)
--- NOTE | 2023-01-20 23:07 | NUR ---
PT UP TO ROOM 327 AROUND 2019. PT VERY DROWSY AND COMPLAINING OF PAIN. SCHEDULED TYLENOL ADMINISTERED PER ORDERS. PT STARTED ON POST OP VITALS. ICE ADDED TO PT LEFT KNEE. BRACE ON LLE. LLE ELEVATED. BED ALARM ON. CALL LIGHT IN PLACE. ALL NEEDS MET AT THIS TIME.
--- NOTE | 2023-01-20 23:24 | NUR ---
PT C/O LEFT LOWER EXTREMITY PAIN AND RATING 10/10. PRN 5MG OXYCODONE ADMINISTERED @ 2111. PT RESTING WELL AND A 0/10 OF RFLACC SCALE. BED ALARM ON. CALL LIGHT IN PLACE. ALL NEEDS MET AT THIS TIME.
[2023-01-21] VITALS (14 sets, daily range): BP systolic 71–156; BP diastolic 55–78; PULSE 70–82; TEMP 97.6–98.8
--- NOTE | 2023-01-21 04:04 | NUR ---
PT C/O INCREASED PAIN STARTING AT THE LEFT HIP AND RADIATING TO LEFT CALF. 4MG PRN IV MORPHINE ADMINISTERED PER PT REQUEST AND ORDERS. CALL LIGHT IN PLACE. ALL NEEDS MET AT THIS TIME.
--- NOTE | 2023-01-21 06:01 | NUR ---
PT REPORTED PAIN RELIEF FROM PRN IV MEDICATION. PT DENIES PAIN AT THIS TIME.
--- NOTE | 2023-01-21 06:08 | NUR ---
PT HAD LOW OUTPUT OF 150ML THROUGH THE SHIFT. BLADDERSCANNED PT TO FIND 0ML IN HER BLADDER. PT REPORTS SHE HAS A HISTORY OF URINARY RETENTION POST SURGERY. PT REPORTS SHE HAS HAD TO TAKE FLOMAX BEFORE TO FIX THE ISSUE. PT DENIES FEELING A FULL BLADDER AT THIS TIME. CALL LIGHT IN PLACE. BED ALARM ON. ALL NEEDS MET AT THIS TIME.
[2023-01-21 06:09] LABS: MEAN CELL VOLUME 84 fl (80.0-100.0); MEAN CORPUSCULAR HGB CONC 32 g/dl (33.0-37.0); MEAN PLATELET VOLUME 12.3 fl (7.4-10.4); PLATELET COUNT 126 K/mm3 (130-400); RED BLOOD COUNT 3.03 M/mm3 (4.10-5.30); REDCELL DISTRIBUTION WIDTH-CV 21.2 % (11.5-14.5)
[2023-01-21 06:13] LABS: HEMATOCRIT 25.4 % (37.0-47.0); HEMOGLOBIN 8.2 g/dl (12.5-16.0); MEAN CORPUSCULAR HEMOGLOBIN 27 pg (27-31)
[2023-01-21 06:30] LABS: CALCIUM 8.1 mg/dL (8.4-10.2); CREATININE, serum 0.83 mg/dL (0.57-1.11); MAGNESIUM 2.1 mg/dL (1.6-2.6)
[2023-01-21 07:06] LABS: LYMPHOCYTE 7 % (20.0-51.0); NEUTROPHILS 86 % (42.0-75.2)
[2023-01-21 07:07] LABS: ANISOCYTOSIS 2+; HYPOCHROMIA 1+; PLATELET ESTIMATE DECREASED (NORMAL)
--- NOTE | 2023-01-21 07:43 | NUR ---
pt resting in bed, daughter at bedside. vss and tele in place. pt rates pain an 8/10, morphine given per emar. knee immobilizer to LLE. +1 pitting edema present to LLE. pulses are palpable, pt identifies touch. voss to dd w yellow urine output. scds and teds to RLE. pt on 1L nasal cannula. fluids infusing at 60ml/hr in left hand. fall precautions in place. call light in reach.
--- NOTE | 2023-01-21 08:00 | NUR ---
Pt resting in bed. Patient is AOx4.Daughter is in room. VSS and tele in place. SCDs and TEDs to RLE, knee immobilizer to LLE. Pulses palpable and patient feels sensation, can wiggle toes. Equal hand net lead developer with no pain. Downs secured with yellow urine output. Pt on oxygen 1L nasal cannula. Patient rates pain 8/10, nurse gave 4mg morphine by IV. NS infusing 60ml/hr, left hand. Gauze dressing on left hip dry and intact. Ice in place. Call light in reach.
--- NOTE | 2023-01-21 08:52 | NUR ---
Slitting Machine Operator Helper met with Patient and daughter at bedside to discuss discharge planning. Patient and family have reviewed their options and have preferences of [facility] in [place], [place], and [facility].
--- NOTE | 2023-01-21 12:13 | NUR ---
GARY contacted [facility] to follow-up on Patient's referral. [facility] states that they can accept Patient for discharge no sooner than tomorrow, 01-22-23 after 3rd midnight. GARY informed Patient and daughter. Patient's preference continues to be [facility] who is still reviewing Patient at this time.
--- NOTE | 2023-01-21 19:19 | NUR ---
REPORT RECIEVED FROM SEBAS LLAMAS. PT RESTING IN BED READING A BOOK. PT REPORTED PRN PAIN MEDICATION GIVEN BY PREVIOUS SHIFT RELIEVED HER PAIN. NO OTHER COMPLAINTS OR CONCERNS. BED ALARM ON. CALL LIGHT IN PLACE. ALL NEEDS MET AT THIS TIME.
--- NOTE | 2023-01-21 21:26 | NUR ---
SHIFT ASSESSMENT COMPLETE, SEE DOCUMENTATION. PT RESTING IN BED AND READING HER BOOK. PT HAS NO COMPLAINTS OR CONCERNS AT THIS TIME. BED ALARM ON. CALL LIGHT IN PLACE. ALL NEEDS MET AT THIS TIME.
[2023-01-22] VITALS (7 sets, daily range): BP systolic 125–159; BP diastolic 72–75; PULSE 72–79; TEMP 97.9–98.3
--- NOTE | 2023-01-22 08:30 | NUR ---
pt resting in bed. reports increased pain, pain medication given per emar. vss and tele in place. voss to dd w dark yellow urine output. scd and teds to RLE. INT to left hand. fall precautions in place. call light in reach. no needs at this time.
[2023-01-22 10:16] LABS: MEAN CELL VOLUME 87 fl (80.0-100.0); MEAN CORPUSCULAR HGB CONC 31 g/dl (33.0-37.0); MEAN PLATELET VOLUME 10.9 fl (7.4-10.4); PLATELET COUNT 198 K/mm3 (130-400); RED BLOOD COUNT 3.23 M/mm3 (4.10-5.30); REDCELL DISTRIBUTION WIDTH-CV 21.5 % (11.5-14.5)
[2023-01-22 10:18] LABS: HEMATOCRIT 28.1 % (37.0-47.0); HEMOGLOBIN 8.6 g/dl (12.5-16.0); MEAN CORPUSCULAR HEMOGLOBIN 27 pg (27-31)
[2023-01-22 10:29] LABS: CALCIUM 8.5 mg/dL (8.4-10.2); CREATININE, serum 0.93 mg/dL (0.57-1.11); POTASSIUM 4.6 mmol/L (3.5-4.5)
[2023-01-22 10:48] LABS: BAND 1 % (0-10); BASOPHIL 1 % (0-2); LYMPHOCYTE 21 % (20.0-51.0); NEUTROPHILS 74 % (42.0-75.2); PLATELET ESTIMATE NORMAL (NORMAL)
[2023-01-22] MEDS ORDERED: ELIQUIS 2.5 PO (10:56)
[2023-01-22] MEDS ORDERED: ROXICODONE 55 MG/TAB PO (11:01)
--- NOTE | 2023-01-22 11:20 | NUR ---
voss discontinued without difficulty. 200ml of yellow urine output. encouraged pt to drink plenty of fluids in order to urinate before discharge. no other needs at this time.
--- NOTE | 2023-01-22 12:16 | NUR ---
Warehouse Supervisor 3Rd Shift sent clinical updates to [facility] and contacted Eladia, magnetic resonance imaging coordinator with [facility]. Eladia reports to accept Patient for admission today. GARY spoke with Figueroa and daughter, Luzma who both agree to transfer to with family provided transportation. Luzma agrees to work with family members to coordinate transportation today. GARY informed nursing staff and physician of [facility] discharge today. GARY and GARY student conducted Medicare IM brief with Patient. Patient acknowledges and signs form. Original placed in chart, copy was declined by Patient. Discharge Plan: [facility].
--- NOTE | 2023-01-22 14:00 | NUR ---
daughter here to transport pt to [facility] swing[facility]. discharge packet given to pt as well as yinaaucell dressing. report called to nurse at [facility] and all questions answered. pt and family escorted out.
== END 2023-01-22 14:00 | disposition swing bed (61) | DRG 534 ==
LOC: SURG 19:42
PROVIDERS: Internal Medicine; Nurse Anesthetist, Certified Registered; Nurse Practitioner Family; Orthopaedic Surgery; Physician Assistant; ADMIT Hospitalist
DX: S72.402A Unspecified fracture of lower end of left femur, initial encounter for closed fracture (principal); M97.02XA Periprosthetic fracture around internal prosthetic left hip joint, initial encounter; N39.0 Urinary tract infection, site not specified; E22.2 Syndrome of inappropriate secretion of antidiuretic hormone; R11.2 Nausea with vomiting, unspecified; I25.10 Atherosclerotic heart disease of native coronary artery without angina pectoris; Z95.1 Presence of aortocoronary bypass graft; I48.91 Unspecified atrial fibrillation; Z79.01 Long term (current) use of anticoagulants; N18.9 Chronic kidney disease, unspecified; E87.5 Hyperkalemia; K59.00 Constipation, unspecified; D64.9 Anemia, unspecified; D69.6 Thrombocytopenia, unspecified; I12.9 Hypertensive chronic kidney disease with stage 1 through stage 4 chronic kidney disease, or unspecified chronic kidney disease; I05.9 Rheumatic mitral valve disease, unspecified; I83.90 Asymptomatic varicose veins of unspecified lower extremity; Z86.73 Personal history of transient ischemic attack (TIA), and cerebral infarction without residual deficits; E26.9 Hyperaldosteronism, unspecified; K21.9 Gastro-esophageal reflux disease without esophagitis; G47.00 Insomnia, unspecified; F41.9 Anxiety disorder, unspecified; Z66 Do not resuscitate
CPT/HCPCS: A9284; C1713; C1776; J0690; J0696; J1170; J2270; J2405; J2704; J3010; J3370; J7030; P9016; P9035